=== PATIENT | female | born 1975 | race Caucasian/White ===

== ENCOUNTER → 2021-04-23 11:22 | Outpatient (BNVA) | payer OTHER, SELFPAY | PROVIDERS: PCP Physician Assistant; Visit Provider Advanced Practice Midwife ==

== ENCOUNTER 2021-05-20 08:02 | Outpatient (REF) | payer OTHER, SELFPAY ==
[2021-05-26 18:37] LABS: HPV mRNA E6/E7 rflx Not Detected (Not Detected)
== END 2021-05-20 08:03 | disposition home or self-care (01) ==
LOC: HO.LAB 08:02
PROVIDERS: PCP Physician Assistant; Visit Provider Advanced Practice Midwife
DX: Z01.419 Encounter for gynecological examination (general) (routine) without abnormal findings (principal); Z11.51 Encounter for screening for human papillomavirus (HPV); A63.0 Anogenital (venereal) warts
CPT/HCPCS: 87624; 88142

== ENCOUNTER 2021-12-15 07:39 | Outpatient (REF) | payer OTHER, SELFPAY ==
[2021-12-15 08:33] LABS: Hematocrit 39.1 % (37.0-47.0); Hemoglobin 12.6 g/dl (12.0-16.0); Mean Corpuscular HGB Conc 32.2 g/dl (31.0-35.0); Mean Corpuscular Hemoglobin 28.8 pg (27.0-33.0); Mean Corpuscular Volume 89.5 fL (80.0-98.0); Mean Platelet Volume 8.5 fL (9.4-12.3); Platelet Count 362 X10*3/uL (160-400); Red Blood Count 4.37 X10*6/uL (4.20-5.50); Red Cell Distribution Width 12.1 % (11.0-16.0); White Blood Count 6.7 X10*3/uL (4.8-10.8)
[2021-12-15 08:44] LABS: Estimated Average Glucose 97 mg/dL
[2021-12-15 09:00] LABS: Alanine Aminotransferase 18 U/L (0-31); Albumin Level 4.3 g/dL (3.5-5.0); Alkaline Phosphatase 74 U/L (39-117); Anion Gap 12 (12-20); Aspartate Amino Transferase 19 U/L (5-31); Bilirubin Total 0.3 mg/dL (0.0-1.0); Blood Urea Nitrogen 15 mg/dL (9-16); Calcium 9.2 mg/dL (8.4-10.2); Carbon Dioxide 26 mmol/L (22-29); Chloride 106 mmol/L (96-108); Cholesterol 184 mg/dL; Estimated Glomerular Filt Rate > 60; Glucose Fasting 100 mg/dL (60-99); HDL Cholesterol 53 mg/dL; Iron 49 mcg/dL (30-160); LDL Cholesterol Calculated 107 mg/dl; Percent Iron Saturation 15 % (15-50); Potassium 4.3 mmol/L (3.3-5.1); Sodium 140 mmol/L (135-145); Total Iron Binding Capacity 318 mcg/dL (228-428); Total Protein 6.6 g/dL (6.5-8.0); Triglycerides 121 mg/dL; Unsaturated Iron Binding 269 ug/dL
[2021-12-15 09:11] LABS: TSH reflex Free T4 2.15 uIU/mL (0.32-4.0)
== END 2021-12-15 07:40 | disposition home or self-care (01) ==
LOC: HO.LAB 07:39
PROVIDERS: PCP Physician Assistant; Visit Provider Physician Assistant
DX: K08.9 Disorder of teeth and supporting structures, unspecified (principal); D50.9 Iron deficiency anemia, unspecified; Z13.1 Encounter for screening for diabetes mellitus; Z13.220 Encounter for screening for lipoid disorders; Z13.29 Encounter for screening for other suspected endocrine disorder
CPT/HCPCS: 36415; 80053; 80061; 83036; 83540; 84443; 85027

== ENCOUNTER 2021-12-16 10:36 | Outpatient (REF) | payer OTHER, SELFPAY | END 2021-12-16 10:37 | disposition home or self-care (01) | LOC: HO.LAB 10:36 | PROVIDERS: PCP Physician Assistant; Visit Provider Obstetrics & Gynecology | DX: K62.9 Disease of anus and rectum, unspecified (principal) | CPT/HCPCS: 11106; 11420; 56605; 88305; 88312 ==

== ENCOUNTER → 2021-12-30 11:51 | Outpatient (BNVA) | payer OTHER, SELFPAY | PROVIDERS: Visit Provider Obstetrics & Gynecology | DX: Z13.89 Encounter for screening for other disorder (principal) ==

== ENCOUNTER → 2022-01-07 15:52 | Outpatient (BNVA) | payer OTHER, SELFPAY | PROVIDERS: Visit Provider Obstetrics & Gynecology | DX: Z13.89 Encounter for screening for other disorder (principal) ==

== ENCOUNTER 2022-01-12 19:10 | Emergency (ER) | payer OTHER, SELFPAY ==
--- NOTE | 2022-01-12 19:23 | PC.NURSE ---
no response at this time to triage call
--- NOTE | 2022-01-12 19:50 | PC.NURSE ---
no response for triage call at this time
== END 2022-01-12 21:01 | disposition left against medical advice (07) ==
PROVIDERS: Emergency Provider Emergency Medicine; PCP Physician Assistant
DX: R09.89 Other specified symptoms and signs involving the circulatory and respiratory systems (principal)

== ENCOUNTER 2022-06-16 04:10 | Emergency (ER) | payer OTHER, SELFPAY ==
--- NOTE | 2022-06-16 04:13 | ECG_ITS ---
Test Reason : CHEST PAIN Blood Pressure : / mmHG Vent. Rate : 086 BPM Atrial Rate : 086 BPM P-R Int : 136 ms QRS Dur : 080 ms QT Int : 386 ms P-R-T Axes : 068 075 048 degrees QTc Int : 461 ms Normal sinus rhythm Normal ECG No previous ECGs available Referred By: Generic ED Physician Electronically Signed By:ANA KELLY
[2022-06-16 04:18] VITALS: BP 128/76; BP 140/70; PULSE 100; PULSE 87; RESP 22; TEMP 36.7; O2SAT 100; BMI 24.1
[2022-06-16 04:36] LABS: Hematocrit 38.9 % (37.0-47.0); Hemoglobin 12.9 g/dl (12.0-16.0); Mean Corpuscular HGB Conc 33.2 g/dl (31.0-35.0); Mean Corpuscular Hemoglobin 29.1 pg (27.0-33.0); Mean Corpuscular Volume 87.8 fL (80.0-98.0); Mean Platelet Volume 8.4 fL (9.4-12.3); Platelet Count 330 X10*3/uL (160-400); Red Blood Count 4.43 X10*6/uL (4.20-5.50); White Blood Count 7.7 X10*3/uL (4.8-10.8)
--- NOTE | 2022-06-16 04:40 | ED.CHESTPAIN ---
HPI - Chest Pain General Chief Complaint: Chest Pain Stated Complaint: chest pressure Time Seen by Provider: 06/16/22 04:40 Source: patient Mode of arrival: EMS Limitations: no limitations History of Present Illness HPI narrative: Patient with no known coronary artery disease, history of anxiety comes here for the chest pain started in less than an hour ago. Also patient reported tingling in both hands. No shortness of breath. Pain feels like sharp pain patient took 6 Dulcolax tablet before going to bed patient was very anxious when EMS arrived Related Data Previous Rx's Medication Instructions Recorded fluoxetine 40 mg capsule 40 mg PO QAM 30 days #30 caps 12/16/21 triamcinolone acetonide 0.1 % 1 appl topical BID 4 weeks #80 01/07/22 topical cream grams oseltamivir 75 mg capsule (Tamiflu) 75 mg PO BID 5 days #10 caps 01/12/22 benzonatate 200 mg capsule 200 mg PO TID 5 days #15 caps 01/14/22 sennosides 8.6 mg tablet (Senna 17.2 mg PO BEDTIME 30 days #60 tabs 01/14/22 Laxative) Allergies Allergy/AdvReac Type Severity Reaction Status Date / Time No Known Allergies Allergy Unknown Verified 01/11/22 16:03 [facility] Past Medical History Medical History Endometriosis Surgical History H/O exploratory laparotomy History of root canal procedure Family History Family History (Updated 01/11/22 @ 16:02 by LEYLA Hughes) Father Colon cancer Mother History of IBS Arthritis Other Mental health disorder Social History Social History Housing: House Alcohol intake: current Alcohol intake frequency: holidays/special occasions only Patient Tobacco Use Status: Never used Tobacco e-Cigarette/Vaping Use: Never Used Advance Directives: No Advance Directives Information Provided: No service: No Current occupational status: employed 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 Oriented X3. No acute distress. Eyes: PERRLA, No Nystagmus ENT: Pharynx normal. Oral Mucosa moist Neck: Normal inspection. Neck supple. CVS: Normal heart rate and rhythm. Pulses normal. Respiratory: No respiratory distress. Equal air entry bilateral, no wheezing/rales/rhonchi Abdomen: Soft and nontender. Bowel sounds are present, no mass palpable, no CVA tenderness Skin: Skin warm and dry. Normal skin color. Normal skin turgor. Extremities: No lower extremity edema. No calf tenderness Neuro: Oriented X 3. No motor deficit. No sensory deficit.No cerebellar signs , cranial nerves II-XII intact MDM - Chest Pain MDM Narrative Medical decision making narrative: Patient atypical chest pain likely anxiety EKG with normal troponin negative heart score of 1 discharge patient home Lab Data Attestation: I reviewed the patient's lab results. Result diagrams: 06/16/22 04:31 06/16/22 04:31 Labs: Lab Results 06/16/22 06/16/22 06/16/22 Range/Units 04:31 04:31 04:31 WBC 7.7 (4.8-10.8) X10*3/uL RBC 4.43 (4.20-5.50) X10*6/uL Hgb 12.9 (12.0-16.0) g/dl Hct 38.9 (37.0-47.0) % MCV 87.8 (80.0-98.0) fL MCH 29.1 (27.0-33.0) pg MCHC 33.2 (31.0-35.0) g/dl RDW 12.0 (11.0-16.0) % Plt Count 330 (160-400) X10*3/uL MPV 8.4 L (9.4-12.3) fL Absolute Nucleated RBC 0.000 (0.0-0.012) X10*3/uL Nucleated RBC % (auto) 0.0 (0.0-0.2) /100WBC Sodium 141 (135-145) mmol/L Potassium 3.2 L D (3.3-5.1) mmol/L Chloride 106 (96-108) mmol/L Carbon Dioxide 22 (22-29) mmol/L Anion Gap 16 (12-20) BUN 10 (9-16) mg/dL Creatinine 0.78 (0.5-1.4) mg/dL Estim Creat Clear Calc 81.1 Estimated GFR > 60 Random Glucose 93 (60-115) mg/dL Calcium 8.9 (8.4-10.2) mg/dL Total Bilirubin 0.4 (0.0-1.0) mg/dL AST 18 (5-31) U/L ALT 14 (0-31) U/L Alkaline Phosphatase 79 (39-117) U/L Troponin I High Sens < 3.5 (<3.5-17.0) ng/L Total Protein 6.4 L (6.5-8.0) g/dL Albumin 4.1 (3.5-5.0) g/dL ECG Data ECG #1: Attestation: I personally reviewed and interpreted this ECG as follows: Interpretation: Normal sinus rhythm heart rate 86 beats per minute normal axis no acute ischemic changes impression normal EKG Scores Heart Score History: -0- slightly suspicious ECG: -0- normal Age: -1- >45 - <65 Risk factory: -0- no risk factors known Troponin: -0- < or = normal limit Score: 1 Risk: 1.7% Discharge Plan Discharge Clinical Impression: Atypical chest pain Patient Disposition: Home, Self-Care Instructions: Chest Pain (ED), Noncardiac Chest Pain (ED) Additional Instructions: Your pain is unlikely from the heart. Do not take more than 2 Dulcolax in 24 hours follow-up with PCP Prescriptions: No Action oseltamivir [Tamiflu] 75 mg capsule 75 mg PO BID 5 Days Qty: 10 0RF sennosides [Senna Laxative] 8.6 mg tablet 17.2 mg PO BEDTIME 30 Days Qty: 60 2RF benzonatate 200 mg capsule 200 mg PO TID 5 Days Qty: 15 0RF fluoxetine 40 mg capsule 40 mg PO QAM 30 Days Qty: 30 1RF triamcinolone acetonide 0.1 % cream 1 appl topical BID 28 Days Qty: 80 0RF Rx Instructions: Apply to the affected area twice a day for a week then twice a week for maintenance and as needed
[2022-06-16 04:53] LABS: Alanine Aminotransferase 14 U/L (0-31); Albumin Level 4.1 g/dL (3.5-5.0); Alkaline Phosphatase 79 U/L (39-117); Anion Gap 16 (12-20); Aspartate Amino Transferase 18 U/L (5-31); Bilirubin Total 0.4 mg/dL (0.0-1.0); Blood Urea Nitrogen 10 mg/dL (9-16); Calcium 8.9 mg/dL (8.4-10.2); Carbon Dioxide 22 mmol/L (22-29); Chloride 106 mmol/L (96-108); Creatinine Clr Calc Pharmacy 81.1; Estimated Glomerular Filt Rate > 60; Glucose Random 93 mg/dL (60-115); Potassium 3.2 mmol/L (3.3-5.1); Sodium 141 mmol/L (135-145); Total Protein 6.4 g/dL (6.5-8.0)
[2022-06-16 04:57] LABS: Troponin-I High Sensitivity < 3.5 ng/L (<3.5-17.0)
== END 2022-06-16 06:07 | disposition home or self-care (01) ==
PROVIDERS: Emergency Provider Internal Medicine; PCP Physician Assistant
DX: R07.89 Other chest pain (principal); R20.2 Paresthesia of skin; F41.9 Anxiety disorder, unspecified; Z79.899 Other long term (current) drug therapy
CPT/HCPCS: 36415; 80053; 84484; 85027; 93005; 99283

== ENCOUNTER 2022-08-20 09:14 | Outpatient (REF) | payer OTHER, SELFPAY ==
--- NOTE | ~2022-08-20 | MM_ITS ---
EXAMINATION: MM SCREENING DIGITAL BREAST TOMOSYNTHESIS, BILATERAL CLINICAL INFORMATION: Screening. Asymptomatic. Age 47. No prior mammography. No known family history breast cancer. The lifetime risk of breast cancer based on the Tyrer-Cuzick Model is 10%. COMPARISON: None (current study represents initial baseline exam). TECHNIQUE: Digital breast tomosynthesis is performed in both the craniocaudal and mediolateral oblique views along with computer-aided detection (CAD). Synthesized 2D images are generated from the tomosynthesis. FINDINGS: The breasts are heterogeneously dense, which may obscure small masses (ACR BI-RADS breast composition Category c). There are diffuse bilateral punctate and small round calcification in both breasts. No focal pleomorphic types or ductal distribution. No architectural abnormality. The axilla and skin contours are unremarkable. Left CC view has nodular opacity posterior medial breast without MLO correlate, likely muscle artifact. Right breast has a circumscribed 2.3 oval mass anterior 8:30 position, likely a cyst. MM/MM tomosynthesis screening BI IMPRESSION: -Bilateral benign punctate and round calcifications -Right: Circumscribed smooth oval mass approximately 2.3 cm anterior 8:30, suspect cyst. -Left: Nodular asymmetric density posterior medial breast on CC view, likely sternalis muscle artifact. ASSESSMENT: BI-RADS 0: Incomplete - Need Additional Imaging Evaluation RECOMMENDATION: Left: Additional views of the left breast: ML, cleavage. Targeted ultrasound if warranted. Right: Targeted ultrasound. Radiology department staff will contact the patient for additional imaging. This patient's information was entered into a reminder system with a target due date for their next mammogram.
== END 2022-08-20 09:15 | disposition home or self-care (01) ==
LOC: HO.MAMMO 09:14
PROVIDERS: PCP Physician Assistant; Visit Provider Physician Assistant
DX: Z12.31 Encounter for screening mammogram for malignant neoplasm of breast (principal)
CPT/HCPCS: 77063; 77067

== ENCOUNTER 2022-08-31 13:22 | Outpatient (REF) | payer OTHER, SELFPAY ==
--- NOTE | ~2022-08-31 | MM_ITS ---
EXAMINATION: MM DIAGNOSTIC DIGITAL BREAST TOMOSYNTHESIS, LEFT US DIAGNOSTIC ULTRASOUND BREAST, BILATERAL CLINICAL INFORMATION: Recall from baseline screening for circumscribed smooth oval mass on right, likely a cyst; and nodular asymmetric density posterior medial left, likely sternalis muscle artifact. TC score 10%. COMPARISON: Mammography: 08/20/2022 (baseline) TECHNIQUE: Digital breast tomosynthesis is performed. 2D images are generated from the tomosynthesis. The following views are obtained: Left cleavage view, left ML. Ultrasound right breast is targeted to the 8:00 through 10:00 position. The medial left breast is also targeted with attention back to the chest wall. Grayscale imaging and color Doppler are performed without and with harmonics. Right breast is imaged with patient both supine and sitting upright. FINDINGS: The breasts are heterogeneously dense, which may obscure small masses (ACR BI-RADS breast composition Category c). Additional views left breast show no persistent asymmetric density. There is no architectural abnormality. Ultrasound right breast demonstrates an incidental circumscribed mildly complicated cyst measuring 1.7 x 1.5 cm 8:00 position corresponding to the mammography. There is incidental dependent mildly echogenic material within the lumen which changes position within the lumen with upright patient positioning. There is no wall thickening or associated solid component or septation or color flow. There is good through transmission of sound. Ultrasound left breast demonstrates no cystic or solid mass or architectural abnormality in the posterior medial breasts. The chest wall soft tissues appear normal. Results are discussed with the patient at time of visit. MM/MM tomosynthesis added views L IMPRESSION: Left: -No persistent asymmetric density. Unremarkable targeted ultrasound. Right: -Benign cyst 8:00 position corresponding to finding on recent mammography. ASSESSMENT: BI-RADS 2: Benign RECOMMENDATION: Routine annual mammography screening. This patient's information was entered into a reminder system with a target due date for their next mammogram.
== END 2022-08-31 13:23 | disposition home or self-care (01) ==
LOC: HO.MAMMO 13:22
PROVIDERS: PCP Physician Assistant; Visit Provider Physician Assistant
DX: N63.20 Unspecified lump in the left breast, unspecified quadrant (principal); N63.10 Unspecified lump in the right breast, unspecified quadrant
CPT/HCPCS: 76642; 77061; 77065

== ENCOUNTER 2022-12-08 12:41 | Outpatient (REF) | payer OTHER, SELFPAY ==
[2022-12-08 14:08] LABS: TSH reflex Free T4 2.16 uIU/mL (0.32-4.0); Vitamin D 25-OH Total 30.1 ng/mL (>30)
== END 2022-12-08 12:42 | disposition home or self-care (01) ==
LOC: HO.LAB 12:41
PROVIDERS: PCP Physician Assistant; Visit Provider Nurse Practitioner Family
DX: F32.A Depression, unspecified (principal); F41.9 Anxiety disorder, unspecified; F42.9 Obsessive-compulsive disorder, unspecified; F50.2 Bulimia nervosa; G47.00 Insomnia, unspecified
CPT/HCPCS: 36415; 82306; 84443

== ENCOUNTER 2023-04-27 10:53 | Outpatient (AMB) | payer OTHER, SELFPAY ==
--- NOTE | 2023-04-27 10:58 | A.OFFPC_ITS ---
Vital Signs 04/27/23 10:59 Height 5 ft 5 in Weight 161 lb BMI 26.8 BP 110/62 Blood Pressure Location Lt brachial Position Sitting Pulse 70 Pulse Source Pulse Oximeter Pulse Oximetry (%) 99 Oxygen Delivery Method Room Air Intake Visit Reasons: f/u MDD Allergies No Known Allergies Allergy (Unknown, Verified 04/27/23 11:05) Medication List - Last Reconciled 04/27/23 by Shankar Barrera PA-C hydroxyzine HCl 25 mg PO BID PRN mupirocin calcium 2% 1 appl topical BID 15 days sennosides (Senna Laxative) 17.2 mg (2 x 8.6 mg) PO BEDTIME 30 days sertraline 50 mg PO DAILY trazodone 25 mg (1/2 x 50 mg) PO BEDTIME PRN Tobacco use date assessed: 11/25/22 Dental Screening Dental Screen Date: 04/27/23 Did you have a dental visit in the last 12 months?: No Did you have a dental problem in the last 6 months where you did not have access to dental care?: No Was dental information given to patient?: Patient has dentist HPI f/u MDD HPI Details Patient is a 47-y ear-old female pallavi ng evaluated today via telephone.? P atient has a past medical history si gnificant for inso mnia, generalized anxiety disorder, depression and OCD . Generalized anx iety/OCD/major dep ressive disorder:? She is speaking w ith a mental healt h therapist ( Eloisa iqbal) at [facility] y counseling.? Now has a psychiatris t whom advised to increase trazodone at night for bett er sleep. She rep orts her mental he alth disorders hav e become worse ove r the last several months.? She repo rts a lot of famil y stressors. 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 .. Oth er concerns--> has been dealing with a nasal infection for many months t o which she has us ed oral antibiotic s and topical anti biotics which has been helpful thoug h still feels irri tation and inner p art of her nose. Also has developed hyperpigmentation is over her cheek s and wonders if t here is any treatm ent for this. [facility] Medical History Endometriosis Surgical History H/O exploratory laparotomy History of root canal procedure Family History Father Colon cancer Mother History of IBS Arthritis Other Mental health disorder Social History Housing: House Alcohol intake: current Alcohol intake frequency: holidays/special occasions only Patient Tobacco Use Status: Never used Tobacco e-Cigarette/Vaping Use: Never Used service: No Current occupational status: employed Current occupation: [employer] 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 Gender identity: Female Cognitive needs: No Hearing needs: No Vision needs: No Female Reproductive History Menstrual Age of Menarche: 15 Questionnaire PHQ-9 Over the last 2 weeks, how often have you been bothered by any of the following problems? 1. Little interest or pleasure in doing things: nearly every day 2. Feeling down, depressed, or hopeless: nearly every day 3. Trouble falling or staying asleep, or sleeping too much: nearly every day (trouble sleeping ) 4. Feeling tired or having little energy: nearly every day 5. Poor appetite or overeating: nearly every day (overeating ) 6. Feeling bad about yourself - or that you are a failure or have let yourself or your family down: more than half the days 7. Trouble concentrating on things, such as reading the newspaper or watching television: several days 8. Moving or speaking so slowly that other people could have noticed. Or the opposite - being so fidgety or restless that you have been moving around a lot more than usual: nearly every day 9. Thoughts that you would be better off or of hurting yourself in some way: nearly every day (pt states almost everyday ) Total score: 24 Depression Screening Interpretation: Positive Depression Screening Follow-up: Existing condition, New Medication prescribed and Community Mental Health Worker F/U 59984 - PHQ-9 Billing: Yes Source: Developed by Drs. Efrain Richard, Tita B.WMichi Houston and colleagues, with an educational bo from [employer]. Thrive Questionnaire Date Thrive assessed: 10/14/22 AUDIT C Alcohol Use Questionnaire (AUDIT-C) 1. How often do you have a drink containing alcohol?: Monthly or less (social ) 2. How many drinks containing alcohol do you have on a typical day when you are drinking?: 1 or 2 3. How often do you have six or more drinks on one occasion?: Never Total Score: 1 Score Reviewed/Action Taken: No FABIAN-7 AMB Questionnaire FABIAN-7 Date FABIAN - 7 assessed: 10/14/22 Source: Developed by Drs. Efrain Richard, Michi Penaloza and colleagues, with an educational bo from [employer]. Review of Systems Const Denies headache(s) Eyes Denies loss of vision ENT Denies vertigo, Denies dizziness, Denies headache(s) and Denies sore throat Card Denies chest pain, Denies leg edema and Denies lightheadedness Resp Denies cough, Denies hemoptysis and Denies wheezing GI Denies abdominal pain, Denies melena, Denies constipation, Denies diarrhea and Denies vomiting Denies urinary frequency, Denies dysuria and Denies urinary urgency Musc Denies arthralgias, Denies joint swelling, Denies numbness and Denies tingling Neuro Denies Abnormal speech present, Denies behavioral changes, Denies vertigo, Denies dizziness, Denies headache(s), Denies loss of vision, Denies memory loss, Denies numbness and Denies tingling Psych Denies anxiety, Denies behavioral changes, Denies depression, Denies memory loss and Denies panic attacks Jake/Lymph Denies easy bleeding and Denies easy bruising Aller/Immun Denies wheezing Physical exam (Primary Care) Vital Signs: Last Vital Signs Pulse 70 04/27/23 10:59 BP 110/62 04/27/23 10:59 Pulse Ox 99 04/27/23 10:59 Oxygen Delivery Method Room Air 04/27/23 10:59 BMI result Body Mass Index 26.8 Tobacco/Smoking Status: Tobacco use Status Tobacco use date assessed 11/25/22 04/27/23 11:03 Patient Tobacco Use Status Never used Tobacco 04/27/23 11:03 e-Cigarette/Vaping Use Never Used 04/27/23 11:03 PHQ-9: PHQ-9 Score PHQ-9: Total score 24 04/27/23 11:08 Depression Screening Interpretation: Positive Depression Screening Follow-up: Existing condition, New Medication prescribed and Community Mental Health Worker F/U Thrive Assessment: Date of Thrive Assessment Date Thrive assessed 10/14/22 04/27/23 11:03 Const General: healthy appearing, no acute distress, alert and awake Nutritional Appearance: well nourished Orientation/consciousness: oriented to person, oriented to place and oriented to time [facility] Head images: 1. HYPERPIGMENTED LESION OVER THE RIGHT CHEEK. Ears: TM's normal bilaterally General nose exam: Normal nasal mucous membranes and turbinates present Eyes Conjunctivae: conjunctivae normal Sclerae: sclerae normal Pupils: Equal, round and reactive pupils present Neck Neck: Yes no lymphadenopathy and Yes no JVD Thyroid: Thyroid normal Carotids: no bruits Resp Effort & Inspection: normal respiratory effort and not tachypneic Auscultation: no crackles, no rales, no rhonchi and no wheezes Cardio Rate: regular rate Rhythm: regular rhythm Heart sounds: no murmurs and normal S1 and S2 GI Palpation (GI): Soft to palpation, nontender, no hepatomegaly and no splenomegaly Auscultation: normal bowel sounds Skin General skin exam: no rashes or lesions noted and dry skin Neuro General: oriented to person, oriented to place and oriented to time Cranial nerves: Yes Equal, round and reactive pupils present Speech: No Abnormal speech present Gait exam (Neuro): Normal gait present Motor exam (neuro): no tremor noted Extrem Right upper extremity: full ROM Left upper extremity: full ROM Right lower extremity: full ROM; no edema Left lower extremity: full ROM; no edema Psych Mental Status: mental status grossly normal Speech and movement: Normal speech and movement present Affect: normal affect Attitude: cooperative Thought process: Normal thought process present Assessment and Plan Assessment & Plan (1) MDD (major depressive disorder), recurrent episode, moderate: Code(s): F33.1 - Major depressive disorder, recurrent, moderate Plan: PHQ-9 score positive for moderate to severe depression which has been existing condition for her.. Patient seems to be doing much better with her depression and anxiety. She is not speaking with a mental health therapist and has establish care with a psychiatrist through [place]. Still has stress related to work in her personal life. Continues on sertraline 50 mg. Now back to work full-time and doing fairly well. (2) Insomnia: Code(s): G47.00 - Insomnia, unspecified Qualifiers: Insomnia type: primary Qualified Code(s): F51.01 - Primary insomnia Plan: Has been vies to increase her trazodone dose at night. (3) Melasma: Code(s): L81.1 - Chloasma Plan: Patient showing signs of melasma. We did discuss the pathophysiology this and patient does understand. She would like to try topical treatment Medications: New mupirocin 2% 1 appl topical BID 22 grams 0RF L01.00 - Impetigo, unspecified hydroquinone 4% 1 appl topical BID 30 days 28.35 grams 6RF L81.1 - Chloasma Discontinued mupirocin calcium 2% Discontinued Reason: Doctor's Order 1 appl topical BID 15 days 15 grams 0RF L01.00 - Impetigo, unspecified Coding Level of Care Code Est Pt Level 4 (22291) Diagnoses MDD (major depressive disorder), recurrent episode, moderate F33.1 Insomnia F51.01 Insomnia type: primary Melasma L81.1
[2023-04-27 10:59] VITALS: BP 110/62; PULSE 70; O2SAT 99; BMI 26.8
== END 2023-04-27 11:22 | disposition home or self-care (01) ==
PROVIDERS: PCP Physician Assistant; Visit Provider Physician Assistant
DX: F33.1 Major depressive disorder, recurrent, moderate (principal); F51.01 Primary insomnia; L81.1 Chloasma
CPT/HCPCS: 99214

== ENCOUNTER 2023-05-31 15:19 | Outpatient (AMB) | payer OTHER, SELFPAY ==
[2023-05-31 15:26] VITALS: BP 102/66; PULSE 71; BMI 26.0
--- NOTE | 2023-05-31 15:26 | MHC.OFFVIS ---
Intake Vital Signs 05/31/23 15:26 Height 5 ft 5 in Weight 156 lb 8.451 oz BMI 26.0 BP 102/66 Blood Pressure Location Lt brachial Position Sitting Pulse 71 Intake Visit Reasons: Family hx of colon CA (dad) Intake Note: Shayy presents in the office as new patient for family hx of colon cancer. CC: Father passed from colon cancer. she states that for a long time she relied on OTC meds to sleep. She has been checked for blood work and she gets nervous about colon, liver and labs. Sometimes she has constipation/ Material Mover Required: No Allergies No Known Allergies Allergy (Unknown, Verified 05/31/23 15:31) HPI Family hx of colon CA (dad) HPI Details 48 year old? female here today for pre colonoscopy screening.? Patient was sent to us by her PCP.? This is her first colonoscopy screening.? Patient denies any gastrointestinal symptoms in the past or at present.? Patient reports that her father was diagnosed with colorectal cancer in 2016. Unsuccessful chemo. He in June of 2021.? Denies history of difficulty with sedation or anesthesia in the past.? Negative for history of sleep apnea.? Denies any history of cardiac, renal, pulmonary, or hepatic disease.?? No history of infectious? diseases like hepatitis A, B, C, HIV or tuberculosis.? Patient is not on any anticoagulation therapy. 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[employer] 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 Gender identity: Female Cognitive needs: No Hearing needs: No Vision needs: No Female Reproductive History Menstrual Age of Menarche: 15 Review of Systems Const Denies weight gain and Denies weight loss ENT Reports no additional complaints, Denies dysphagia and Denies odynophagia Card Reports no additional complaints Resp Reports no additional complaints GI Denies abdominal pain, Denies belching, Denies melena, Denies bloating, Reports constipation, Denies dysphagia, Denies excessive flatus, Denies dyspepsia, Denies heartburn, Denies diarrhea, Denies loose stools, Denies nausea, Denies odynophagia and Denies vomiting Reports no additional complaints Musc Reports no additional complaints Neuro Reports no additional complaints Psych Reports no additional complaints Endo Reports no additional complaints Physical Exam Vital Signs: Last Vital Signs Pulse 71 05/31/23 15:26 BP 102/66 05/31/23 15:26 BMI result Body Mass Index 26.0 Const General: healthy appearing, no acute distress and well developed Nutritional Appearance: well nourished Orientation/consciousness: patient oriented x3 HEENT Head: Yes normal to inspection, Yes normocephalic and Yes atraumatic Face and sinus: Yes normal facial exam Mouth: Normal oral and palatal mucosa present Throat: Yes posterior oropharynx normal, Yes tonsils normal and Yes uvula midline Eyes General: appearance normal, both eyes and all related structures Neck Neck: Yes normal visual inspection, Yes full ROM and Yes trachea midline Thyroid: Thyroid normal Resp Effort & Inspection: normal respiratory effort, able to speak in complete sentences, no tracheal deviation and symmetric chest movement Auscultation: clear to auscultation bilaterally Cardio Rate: regular rate Heart sounds: S1 normal heart sound present and S2 normal heart sound present GI Inspection: Yes normal to inspection and No distended Palpation (GI): Soft to palpation, not firm, nontender and No hepatosplenomegaly present Auscultation: normal bowel sounds General: Yes no CVA tenderness Back/Spine/Pelvis Back: no CVA tenderness Skin General skin exam: elasticity normal, turgor normal and dry skin Neuro General: patient oriented x3 Psych Appearance: grossly normal Mental Status: mental status grossly normal Speech and movement: Normal speech and movement present Assessment & Plan Assessment & Plan (1) Constipation: Code(s): K59.00 - Constipation, unspecified Qualifiers: Constipation type: other constipation type Qualified Code(s): K59.09 - Other constipation Plan: Start MiraLax. Increase fluid intake and activity to promote better bowel motility. (2) Colon cancer screening: Code(s): Z12.11 - Encounter for screening for malignant neoplasm of colon Plan: Patient denies any GI, cardiac or respiratory symptoms.? Denies any issues with anesthesia in the past.? Denies any history of sleep apnea.? No history infectious diseases in the past or present.? Family history of colorectal cancer. Not on any anticoagulation therapy.? Patient denies melena, hematochezia, unintentional weight loss or ribbon like stools.? Discussed at length the pre-procedure,? prep, diet & medications as well as what to expect prior, during and after the procedure.?? Stressed the importance of good bowel prep. ?Recommended the use of Vaseline or Calmoseptine OTC & baby wipes with bowel movements to promote comfort.? ?Patient verbalizes understanding and agrees to plan of care.? She was given the opportunity to ask questions and all questions answered.? We will see her after the procedure.? Medications: New bisacodyl (Dulcolax (bisacodyl)) take 2 tabs at noon the day before your colonoscopy 10 mg (2 x 5 mg) PO ONCE 1 day 2 tabs 0RF Z12.11 - Encounter for screening for malignant neoplasm of colon polyethylene glycol 3350 (Miralax) As directed by gastroenterology department at [facility] 238 grams PO ONCE 238 grams 0RF Z12.11 - Encounter for screening for malignant neoplasm of colon polyethylene glycol 3350 (Miralax) 17 grams PO DAILY 510 grams 2RF Coding Level of Care Code New Pt Level 3 (88247) Diagnoses Other constipation K59.09 Constipation type: other constipation type Colon cancer screening Z12.11 Time Spent (min) 40 Comment 30 minutes spent with patient and additional 10 minutes spent reviewing her records
== END 2023-05-31 16:15 | disposition home or self-care (01) ==
PROVIDERS: PCP Physician Assistant; Visit Provider Nurse Practitioner Family
DX: K59.09 Other constipation (principal); Z12.11 Encounter for screening for malignant neoplasm of colon
CPT/HCPCS: 99203

== ENCOUNTER → 2023-05-31 15:19 | Outpatient (BNVA) | payer OTHER, SELFPAY | PROVIDERS: PCP Physician Assistant; Visit Provider Nurse Practitioner Family ==

== ENCOUNTER 2023-09-02 10:34 | Day surgery (SDC) | payer OTHER, SELFPAY ==
--- NOTE | 2023-09-01 09:24 | HO.ANESPROP2 ---
HPI - Anesthesia Eval Consult details Narrative: 48yo F for Colonoscopy PMFSH Active Problems Active Problems: All Active Problems (Updated 04/27/23 @ 11:13 by Shankar Barrera PA-C) Melasma (Acute) Impetigo (Acute) MDD (major depressive disorder), recurrent episode, moderate (Acute) Insomnia (Acute) Depression (Acute) Acute viral sinusitis (Acute) Upper respiratory symptom (Acute) Lichen simplex chronicus (Acute) Perianal lesion (Acute) Annual physical exam (Acute) Constipation (Acute) H/O bulimia nervosa (Acute) Family history of colon cancer in father (Acute) Elevated blood pressure reading (Acute) OCD (obsessive compulsive disorder) (Acute) FABIAN (generalized anxiety disorder) (Acute) Colon cancer screening (Acute) Poor dentition (Acute) Screening for hypothyroidism (Acute) Screening for hypercholesterolemia (Acute) Screening for diabetes mellitus (DM) (Acute) Surveillance for Depo-Provera contraception (Acute) Past Medical History Medical History Endometriosis Family History Family History Father Colon cancer Mother History of IBS Arthritis Other Mental health disorder Surgical History Surgical History (Updated 09/02/23 @ 11:30 by Yaritza Segundo RN) Hx of breast implants, bilateral History of root canal procedure H/O exploratory laparotomy Social History Social History Housing: House Alcohol intake: current Alcohol intake frequency: holidays/special occasions only Patient Tobacco Use Status: Never used Tobacco e-Cigarette/Vaping Use: Never Used Use of substances other than those prescribed or required for medical reasons: No Are you DNR?: No Advance Directives: No Advance Directives Information Provided: Yes service: No Current occupational status: employed Current occupation: [email or web address] 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 Gender identity: Female Cognitive needs: No Hearing needs: No Vision needs: No Meds Allergies Allergy/AdvReac Type Severity Reaction Status Date / Time No Known Allergies Allergy Unknown Verified 09/02/23 11:26 Home Medications Medication Instructions Recorded Confirmed Last Taken Type trazodone 100 mg tablet 100 mg PO BEDTIME 05/31/23 Unknown History Assessment and Plan Assessment Anesthesia Assessment: Chart Reviewed
--- OUTSIDE RECORDS SUMMARY | 2023-09-02 10:36 | XMS_ITS | Continuity of Care Document ---
Author Name Unknown Organization [facility] Scooter keeley Address [address] [place] [address] [address] [place] [address]- Care Team Providers Care Radio Division Captain Name Role Phone Not on Staff, PCP Primary Care Physician Unavail able [place] [facility] [place] - 01/10/20 [facility] [address] [place] [address]- [facility] Attending Physician: AdmHardeep morgan Admitting Physician: AdmtrHardeep Referring Physician: Admtr, Ar8 Allergies, Adverse Reactions, Alerts Substance Reaction Severity Status NKA Active Medications ibuprofen 600 mg oral tablet 600 mg, 1, tablet, By Mouth, Every 6 hours, PRN, with food or milk, # 20 tablet, Refills 0, Tot. Refills 0, Acute 10/24/20 16:07:00 EST, as needed for fever, 10/23/19 16:07:00 EST, Route to Pharmacy Electronically, [id number], 165, cm... Start Date: 10/23/19 Stop Date: 10/24/20 Status: Ordered omeprazole 20 mg oral enteric coated capsule 1 capsule = 20 mg, By Mouth, Daily, # 30 capsule, 0 Refills, Maintenance, 11/20/16 11:43:43, EC Capsule Start Date: 11/20/16 Status: Ordered Zofran 4 mg oral tablet 1 tablet = 4 mg, By Mouth, Every 8 hours, PRN Nausea & Vomiting, # 10 tablet, 0 Refills, Maintenance, 11/20/16 11:44:00, Tablet Start Date: 11/20/16 Status: Ordered
[2023-09-02 11:26] VITALS: BMI 27.1
--- NOTE | 2023-09-02 11:43 | P.HPSUR_ITS ---
Pre-Procedural Eval Section A Date of Service: 09/02/23 The patient is an INPATIENT: No The History & Physical has been completed within 30 days and I have reviewed it.: No Section B Chief Complaint: Colon cancer screening, family history of colon ca Relevant Family History (Specify if Yes): Yes Relevant Social History: None Present Medications: see Short Stay Collaborative assessment Medical History: Significant History (Endometriosis) History of Previous Operations: Relevant previous surgery/procedure and date(s) (History of root canal procedure H/O exploratory laparotomy) Allergies: Allergies Allergy/AdvReac Type Severity Reaction Status Date / Time No Known Allergies Allergy Unknown Verified 09/02/23 11:26 Review of Systems Sugical H&P ROS: Negative: Constitution, Cardiovascular, Respiratory and G astrointestinal Plan Diagnosis/Plan: Unchanged I have reviewed the history and physical and performed a pertinent physical examination on my patient. No changes have occurred unless specified. Time Spent With Patient Time: Total time managing care of this patient today ____ minutes.
[2023-09-02 11:49] VITALS: BP 117/67; PULSE 71; RESP 15; TEMP 37; O2SAT 97
--- NOTE | 2023-09-02 11:54 | P.OP_ITS ---
Operative Note Operative Note Date of Service: 09/02/23 Narrative: COLONOSCOPY TILL CECUM WITH BIOPSIES AND SNARE POLYPECTOMY Pre-op diagnosis: Colon cancer screening, family history of colon cancer (Dad in his mid 70's) Post-op diagnosis:? Colon polyps, diverticulosis, hemorrhoids, Melanosis coli Endoscopist:? Alyssa Bates MD Anesthesia:?MAC Consent: Indications for the procedure and potential complications of bleeding, perforation, reaction to medications and missed diagnosis were discussed with the patient and informed consent was obtained. Instrument: Olympus PCF H 190 L variable stiffness pediatric colonoscope Monitoring: Vital signs and clinical assessment, intermittent blood pressure monitoring, continuous EKG monitoring, Pulse oximetry and Carbon Dioxide monitoring were done throughout the procedure. Please see anesthesia flowsheet. Colon withdrawl time was 19 minutes. Procedure: The patient was placed in the left lateral decubitis position and pre-procedure medications were administered. After a digital rectal examination of the ano-rectum, the video colonoscope was inserted into the rectum and advanced through the colon to the cecum. The colonoscope was slowly withdrawn in a retrograde panoramic fashion and the colon mucosa was carefully examined including a retroflexed view of the rectum. Findings and interventions are described below. Procedure Difficulty: Without difficulty Findings: Terminal Ileum: Not evaluated Cecum: Mild melanosis coli throughout the colon - random biopsies were obtained from the right colon Ascending Colon: A 12-15 mm sessile polyp in the mid ascending colon - removed with a hot snare Transverse Colon: Mild melanosis coli throughout the colon Descending Colon: Mild melanosis coli throughout the colon Sigmoid Colon: Moderate diverticulosis Rectum: Normal Ano-rectum: Moderate internal hemorrhoids Colon preparation: Good after copious irrigation and fair in the cecum Impression and Post Procedure Diagnosis: Colonoscopy Findings: One medium sized polyp removed Mild melanosis coli throughout the colon - random biopsies were obtained from the right colon Moderate diverticulosis seen in the sigmoid colon Moderate hemorrhoids on retroflexed exam. Plan: Await pathology results Patient has an appointment on 09/20/23 in the GI Clinic with Cecile Valero FNP- BC. Repeat Colonoscopy interval based on path results - in 3 years if polyps are adenomatous and 5 years if polyps are hyperplastic due to fair prep in the cecum and family history of colon cancer. Above findings were reviewed with the patient and colon polyps and diverticulosis handouts were given in the discharge area
[2023-09-02] MEDS: Lactated Ringers 1,000 ML 100 ML IVCONT (11:57)
[2023-09-02 12:02] LABS: UPreg QC Valid YES; Urine Pregnancy NEGATIVE (NEGATIVE)
[2023-09-02 12:33] VITALS: BP 106/66; PULSE 73; RESP 16; TEMP 36.5; O2SAT 100
[2023-09-02 12:48] VITALS: BP 111/67; PULSE 68; RESP 16; TEMP 36.5; O2SAT 100
== END 2023-09-02 13:20 | disposition home or self-care (01) ==
PROVIDERS: Nurse Practitioner; PCP Physician Assistant; Visit Provider Internal Medicine Gastroenterology
PROC: 0DJD8ZZ Inspection of Lower Intestinal Tract, Via Natural or Artificial Opening Endoscopic (ICD-10-PCS; CPT 45378; principal; 2023-09-02 12:10)
DX: Z12.11 Encounter for screening for malignant neoplasm of colon (principal); D12.2 Benign neoplasm of ascending colon; K63.89 Other specified diseases of intestine; K57.30 Diverticulosis of large intestine without perforation or abscess without bleeding; K64.8 Other hemorrhoids; Z80.0 Family history of malignant neoplasm of digestive organs; G47.00 Insomnia, unspecified; L28.0 Lichen simplex chronicus; K59.00 Constipation, unspecified; Z86.59 Personal history of other mental and behavioral disorders; Z79.899 Other long term (current) drug therapy
CPT/HCPCS: 45385; 45380; 81025; 88305; J2704

== ENCOUNTER → 2023-09-02 10:34 | Outpatient (BNV) | payer OTHER, SELFPAY | PROVIDERS: PCP Physician Assistant; Visit Provider Internal Medicine Gastroenterology | DX: Z12.11 Encounter for screening for malignant neoplasm of colon (principal); Z80.0 Family history of malignant neoplasm of digestive organs; K57.30 Diverticulosis of large intestine without perforation or abscess without bleeding; K64.0 First degree hemorrhoids; K63.89 Other specified diseases of intestine; D12.2 Benign neoplasm of ascending colon | CPT/HCPCS: 45380; 45385 ==

== ENCOUNTER 2023-09-20 14:48 | Outpatient (AMB) | payer OTHER, SELFPAY ==
--- NOTE | 2023-09-20 14:56 | A.OFFVIS_ITS ---
Intake Vital Signs 09/20/23 14:59 Height 5 ft 4.5 in Weight 164 lb BMI 27.7 BP 120/68 Blood Pressure Location Lt brachial Position Sitting Pulse 78 Intake Visit Reasons: S/P Seth; Dr. Bates Intake Note: Shayy presents in the office as a follow up colonoscopy. CC: She states that her results came back with some stuff and she is a little concerned. She states that there was diverticulitis and holes in her colon or pockets. Management Technician Required: No Allergies No Known Allergies Allergy (Unknown, Verified 09/20/23 15:01) HPI S/P Seth; Dr. Bates HPI Details LAST VISIT: Constipation Start MiraLax. Increase fluid intake and activity to promote better bowel motility. Colon cancer screening Patient denies any GI, cardiac or respiratory symptoms.? Denies any issues with anesthesia in the past.? Denies any history of sleep apnea.? No history infectious diseases in the past or present.? Family history of colorectal cancer. Not on any anticoagulation therapy.? Patient denies melena, hematochezia, unintentional weight loss or ribbon like stools.? Discussed at length the pre-procedure,? prep, diet & medications as well as what to expect prior, during and after the procedure.?? Stressed the importance of good bowel prep. ?Recommended the use of Vaseline or Calmoseptine OTC & baby wipes with bowel movements to promote comfort.? ?Patient verbalizes understanding and agrees to plan of care.? She was given the opportunity to ask questions and all questions answered.? We will see her after the procedure.? Plan Medications New bisacodyl (Dulcolax (bisacodyl)) take 2 tabs at noon the day before your colonoscopy 10 mg (2 x 5 mg) PO ONCE 1 day 2 tabs 0R F Z12.11 polyethylene glycol 3350 (Miralax) As directed by gastroenterology department at [facility] 238 grams PO ONCE 238 grams 0RF Z12.11 polyethylene glycol 3350 (Miralax) 17 grams PO DAILY 510 grams 2RF COLONOSCOPY: Findings: Terminal Ileum: Not evaluated Cecum: Mild melanosis coli throughout the colon - random biopsies were obtained from the right colon Ascending Colon: A 12-15 mm sessile polyp in the mid ascending colon - removed with a hot snare Transverse Colon: Mild melanosis coli throughout the colon Descending Colon: Mild melanosis coli throughout the colon Sigmoid Colon: Moderate diverticulosis Rectum: Normal Ano-rectum: Moderate internal hemorrhoids Colon preparation: Good after copious irrigation and fair in the cecum Impression and Post Procedure Diagnosis: Colonoscopy Findings: One medium sized polyp removed Mild melanosis coli throughout the colon - random biopsies were obtained from the right colon Moderate diverticulosis seen in the sigmoid colon Moderate hemorrhoids on retroflexed exam. Plan: Repeat Colonoscopy interval based on path results - in 3 years if polyps are adenomatous and 5 years if polyps are hyperplastic due to fair prep in the cecum and family history of colon cancer. PATHOLOGY RESULTS: Diagnosis A. Colon, ascending, polyp: Tubular adenoma; negative for high-grade dysplasia and carcinoma. B. Colon, ascending, biopsy: Colonic mucosa with pigmented lamina propria macrophages consistent with melanosis coli, otherwise no specific change TODAY'S VISIT: Patient is here today for follow-up and to discuss colonoscopy results. Patient is worry about what was seen on colonoscopy. Diverticulosis and melanosis coli. Patient did take Senokot in the past most likely melanosis coli related to that. Patient reports that occasionally she is constipated. Patient reports that she eats food that is high in fiber. Patient denies any melena, hematochezia, unintentional weight loss or ribbon like stools. Patient denies any dyspepsia, dysphagia or odynophagia. Denies any issues with the prep, anesthesia or procedure itself. Patient reports that she has been feeling well otherwise. [facility] Medical History (Updated 10/01/23 @ 18:55 by REHANA Paniagua) Tubular adenoma of colon Melanosis coli Endometriosis Surgical History Hx of colonoscopy Hx of breast implants, bilateral History of root canal procedure H/O exploratory laparotomy Family History Father Colon cancer Mother History of IBS Arthritis Other Mental health disorder Social History Housing: House Alcohol intake: current Alcohol intake frequency: holidays/special occasions only Patient Tobacco Use Status: Never used Tobacco e-Cigarette/Vaping Use: Never Used service: No Current occupational status: employed 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[employer] 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 Gender identity: Female Cognitive needs: No Hearing needs: No Vision needs: No Female Reproductive History Menstrual Age of Menarche: 15 Review of Systems Const Denies weight gain and Denies weight loss ENT Reports no additional complaints, Denies dysphagia and Denies odynophagia Card Reports no additional complaints Resp Reports no additional complaints GI Denies abdominal pain, Denies belching, Denies melena, Denies bloating, Denies change in bowel habits, Reports constipation (Occasional), Denies dysphagia, Denies excessive flatus, Denies dyspepsia, Denies heartburn, Denies diarrhea, Denies loose stools, Denies nausea, Denies odynophagia and Denies vomiting Reports no additional complaints Musc Reports no additional complaints Neuro Reports no additional complaints Psych Reports no additional complaints Endo Reports no additional complaints Physical Exam Vital Signs: Last Vital Signs Pulse 78 09/20/23 14:59 BP 120/68 09/20/23 14:59 BMI result Body Mass Index 27.7 Const General: healthy appearing, no acute distress and well developed Nutritional Appearance: well nourished Orientation/consciousness: patient oriented x3 Resp Effort & Inspection: normal respiratory effort, able to speak in complete sentences, no tracheal deviation and symmetric chest movement Auscultation: clear to auscultation bilaterally Cardio Rate: regular rate GI Inspection: Yes normal to inspection and No distended Palpation (GI): Soft to palpation, not firm, nontender and No hepatosplenomegaly present Auscultation: normal bowel sounds General: Yes no CVA tenderness Back/Spine/Pelvis Back: no CVA tenderness Skin General skin exam: elasticity normal, turgor normal and dry skin Neuro General: patient oriented x3 Psych Appearance: grossly normal Mental Status: mental status grossly normal Assessment & Plan Assessment & Plan (1) Constipation: Code(s): K59.00 - Constipation, unspecified Qualifiers: Constipation type: other constipation type Qualified Code(s): K59.09 - Other constipation (2) Melanosis coli: Code(s): K63.89 - Other specified diseases of intestine (3) Tubular adenoma of colon: Code(s): D12.6 - Benign neoplasm of colon, unspecified (4) Status post colonoscopy: Code(s): Z98.890 - Other specified postprocedural states (5) Diverticulosis: Code(s): K57.90 - Diverticulosis of intestine, part unspecified, without perforation or abscess without bleeding Plan High-fiber diet discussed with patient. Diagnosed with moderate diverticulosis in the sigmoid colon. Patient had also melanosis coli in transverse and ascending colon. Most likely from use of senna in the past. Patient can take MiraLax over the counter. Script for magnesium sent. Patient was also encouraged to start taking probiotic. Increase fluid intake and activity to promote better bowel motility. Colonoscopy recommendation in 3 years due to tubular adenoma and suboptimal prep. Patient will return to the office in 1 year, sooner on as needed basis. Patient will call our office if she will have any GI concerning symptoms. She is agreeable to this plan and verbalizes understanding of instructions. She was given the opportunity to ask questions and all questions answered. Thank you for allowing me to participate in her care Medications: New magnesium oxide 400 mg PO DAILY 90 caps 2RF K59.04 - Chronic idiopathic constipation Coding Level of Care Code Est Pt Level 3 (37342) Diagnoses Other constipation K59.09 Constipation type: other constipation type Melanosis coli K63.89 Tubular adenoma of colon D12.6 Status post colonoscopy Z98.890 Diverticulosis K57.90 Time Spent (min) 30 Comment 20 minutes spent with patient and additional 10 minutes spent reviewing her records
[2023-09-20 14:59] VITALS: BP 120/68; PULSE 78; BMI 27.7
== END 2023-09-20 15:56 | disposition home or self-care (01) ==
PROVIDERS: PCP Physician Assistant; Visit Provider Nurse Practitioner Family
DX: K59.09 Other constipation (principal); K63.89 Other specified diseases of intestine; D12.6 Benign neoplasm of colon, unspecified; Z98.890 Other specified postprocedural states; K57.90 Diverticulosis of intestine, part unspecified, without perforation or abscess without bleeding
CPT/HCPCS: 99213

== ENCOUNTER → 2023-09-20 14:48 | Outpatient (BNVA) | payer OTHER, SELFPAY | PROVIDERS: PCP Physician Assistant; Visit Provider Nurse Practitioner Family ==

== ENCOUNTER 2023-11-10 14:04 | Outpatient (AMB) | payer OTHER, SELFPAY ==
[2023-11-10 14:10] VITALS: BP 86/56; PULSE 74; O2SAT 100; BMI 27.2
--- NOTE | 2023-11-10 14:10 | MHC.OFFVIS ---
Intake Vital Signs 11/10/23 14:10 Height 5 ft 4.5 in Blood Pressure Location Lt brachial Position Sitting Pulse Source Pulse Oximeter Oxygen Delivery Method Room Air Intake Visit Reasons: Abdominal pain Senior Applications Developer Required: No Allergies No Known Allergies Allergy (Unknown, Verified 09/20/23 15:01) COUNTS INCLUDE 234 BEDS AT [facility] Medical History (Updated 10/01/23 @ 18:55 by Cecile Valero, [facility]) Tubular adenoma of colon Melanosis coli Endometriosis Surgical History Hx of colonoscopy Hx of breast implants, bilateral History of root canal procedure H/O exploratory laparotomy Family History Father Colon cancer Mother History of IBS Arthritis Other Mental health disorder Social History Housing: House Alcohol intake: current Alcohol intake frequency: holidays/special occasions only Patient Tobacco Use Status: Never used Tobacco e-Cigarette/Vaping Use: Never Used service: No Current occupational status: employed 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[employer] 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 Gender identity: Female Cognitive needs: No Hearing needs: No Vision needs: No Female Reproductive History Menstrual Age of Menarche: 15 Questionnaire Thrive Questionnaire Date Thrive assessed: 11/10/23 I am a: Patient What is your living situation today?: I have a steady place to live Within the past 12 months, did the food you bought not last and you didn't have the money to get more?: Never true Within the past 12 months, did you worry whether your food would run out before you got money to buy more?: Never true Do you have trouble paying for medicines?: No Do you have trouble getting transportation to medical appointments?: No Do you have trouble paying your heating and electricity bill?: No Do you have trouble taking care of your child, family member or friend?: No Do you have trouble with day-to-day activities such as bathing, preparing meals, shopping, managing finances, etc.?: No Are you currently unemployed and looking for a job?: No Are you interested in more education?: No Please select the resources that you would like help with: None Currently or been in a relationship where the following occur: no concerns reported THRIVE Score: 0 FABIAN-7 AMB Questionnaire FABIAN-7 Date FABIAN - 7 assessed: 10/14/22 Source: Developed by Drs. Efrain Richard, Tita Marte, Michi Braxton and colleagues, with an educational bo from [employer] Coding
--- NOTE | 2023-11-10 14:17 | A.OFFPC_ITS ---
Vital Signs 11/10/23 14:10 Height 5 ft 4.5 in Weight 161 lb BMI 27.2 BP 86/56 L Blood Pressure Location Lt brachial Position Sitting Pulse 74 Pulse Source Pulse Oximeter Pulse Oximetry (%) 100 Oxygen Delivery Method Room Air Intake Visit Reasons: Abdominal pain Intake Note: The patient is experiencing abdominal pain that has persisted for over three months. They are here today to discuss with their PCP the gastrointestinal diagnosis made in August, which was diverticulitis. Additionally, they report right hip pain occurring after any type of movement. Quality Assurance Monitor Required: No Accompanied by: Self / Same As Patient Allergies No Known Allergies Allergy (Unknown, Verified 11/10/23 14:28) Medication List - Last Reconciled 11/10/23 by Shankar Barrera PA-C escitalopram oxalate 10 mg PO DAILY trazodone 150 mg PO BEDTIME Tobacco use date assessed: 11/10/23 Dental Screening Dental Screen Date: 11/10/23 Did you have a dental visit in the last 12 months?: Yes Did you have a dental problem in the last 6 months where you did not have access to dental care?: No Was dental information given to patient?: Patient has dentist HPI Abdominal pain HPI Details Patient is a 48-year-old female here today for problem visit. Reports she has been having trouble with constipation. She usually needs to take a laxative to be able to go the bathroom. She has been taking a medication given to her by her rack production worker. She did have colonoscopy last year which did show diverticulosis and a polyp positive for tubular adenoma. She also reports having right hip pain worse when flexing hip at 90 degrees. She denies any falls or actual trauma to the right hip. She also is concerned about her dentition she went to her dentist and needs multiple areas of work. Of note patient does have a history of bulimia which may have played a role her poor dentition. [facility] Medical History (Updated 11/10/23 @ 14:50 by Shankar Barrera PA-C) Tubular adenoma of colon Melanosis coli Endometriosis Surgical History Hx of colonoscopy Hx of breast implants, bilateral History of root canal procedure H/O exploratory laparotomy Family History Father Colon cancer Mother History of IBS Arthritis Other Mental health disorder Social History Housing: House Alcohol intake: current Alcohol intake frequency: holidays/special occasions only Patient Tobacco Use Status: Never used Tobacco e-Cigarette/Vaping Use: Never Used service: No Current occupational status: employed 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 Efrain Richard, Tita Marte, Michi Braxton and colleagues, with an educational bo from [employer]. Review of Systems Const Denies headache(s) Eyes Denies loss of vision ENT Denies vertigo, Denies dizziness, Denies headache(s) and Denies sore throat Card Denies chest pain, Denies leg edema and Denies lightheadedness Resp Denies cough, Denies hemoptysis and Denies wheezing GI Denies abdominal pain, Denies melena, Reports constipation, Denies diarrhea and Denies vomiting Denies urinary frequency, Denies dysuria and Denies urinary urgency Musc Details: Right lateral hip pain Reports back pain, Reports arthralgias, Denies joint swelling, Denies muscle cramps, Denies numbness and Denies tingling Neuro Denies Abnormal speech present, Denies behavioral changes, Denies vertigo, Denies dizziness, Denies headache(s), Denies loss of vision, Denies memory loss, Denies numbness and Denies tingling Psych Denies anxiety, Denies behavioral changes, Denies depression, Denies memory loss and Denies panic attacks Jake/Lymph Denies easy bleeding and Denies easy bruising Aller/Immun Denies wheezing Physical exam (Primary Care) Vital Signs: Last Vital Signs Pulse 74 11/10/23 14:10 BP 86/56 L 11/10/23 14:10 Pulse Ox 100 11/10/23 14:10 Oxygen Delivery Method Room Air 11/10/23 14:10 BMI result Body Mass Index 27.2 Tobacco/Smoking Status: Tobacco use Status Tobacco use date assessed 11/10/23 11/10/23 14:20 Patient Tobacco Use Status Never used Tobacco 11/10/23 14:20 e-Cigarette/Vaping Use Never Used 11/10/23 14:20 Thrive Assessment: Date of Thrive Assessment Date Thrive assessed 10/14/22 11/10/23 14:20 Const General: healthy appearing, no acute distress, alert and awake Nutritional Appearance: well nourished Orientation/consciousness: oriented to person, oriented to place and oriented to time HENMT Ears: TM's normal bilaterally General nose exam: Normal nasal mucous membranes and turbinates present Eyes Conjunctivae: conjunctivae normal Sclerae: sclerae normal Pupils: Equal, round and reactive pupils present Neck Neck: Yes no lymphadenopathy and Yes no JVD Thyroid: Thyroid normal Carotids: no bruits Resp Effort & Inspection: normal respiratory effort and not tachypneic Auscultation: no crackles, no rales, no rhonchi and no wheezes Cardio Rate: regular rate Rhythm: regular rhythm Heart sounds: no murmurs and normal S1 and S2 GI Palpation (GI): Soft to palpation, nontender, no hepatomegaly and no splenomegaly Auscultation: normal bowel sounds Skin General skin exam: no rashes or lesions noted and dry skin Neuro General: oriented to person, oriented to place and oriented to time Cranial nerves: Yes Equal, round and reactive pupils present Speech: No Abnormal speech present Gait exam (Neuro): Normal gait present Motor exam (neuro): no tremor noted Extrem Right upper extremity: full ROM Left upper extremity: full ROM Right lower extremity: full ROM; no edema Left lower extremity: full ROM; no edema Psych Mental Status: mental status grossly normal Speech and movement: Normal speech and movement present Affect: normal affect Attitude: cooperative Thought process: Normal thought process present Assessment and Plan Assessment & Plan (1) Constipation: Code(s): K59.00 - Constipation, unspecified Qualifiers: Constipation type: other constipation type Qualified Code(s): K59.09 - Other constipation Plan: Patient continues to suffer with chronic constipation. Will supply patient with senna to use 1st force laxative affect. If not effective she will also try lactulose. Advised on increasing fluids and fiber in her diet. She will continue follow-up with a rack production worker (2) Amenorrhea: Code(s): N91.2 - Amenorrhea, unspecified Plan: Reports she has not had any. In a few years. She was on Depo injections though due to fears of side effects of osteoporosis she has stopped using Depo. Will check hormone levels ? Postmenopausal (3) Greater trochanteric bursitis of right hip: Code(s): M70.61 - Trochanteric bursitis, right hip Plan: Patient's signs symptoms of right lateral hip pain most consistent with a greater trochanteric bursitis. Advised on cool compress over the right hip. Advised on physical therapy though patient declines at this time will do her own home stretches. Orders: Orders Vitamin B12 and Folate 11/10/23 E53.8 - Deficiency of other specified B group vitamins, Z86.59 - Personal history of other mental and behavioral disorders Vitamin C 11/10/23 Z86.59 - Personal history of other mental and behavioral disorders Vitamin D 25-OH Total 11/10/23 Z86.59 - Personal history of other mental and behavioral disorders Vitamin E 11/10/23 Z86.59 - Personal history of other mental and behavioral disorders Follicle Stimulating Hormone 11/10/23 N91.2 - Amenorrhea, unspecified Estrogen 11/10/23 N91.2 - Amenorrhea, unspecified HCG Quantitative 11/10/23 N91.2 - Amenorrhea, unspecified Medications: New sennosides (Senna Lax) 8.6 mg PO BEDTIME 90 days 90 tabs 1RF K59.09 - Other constipation lactulose 20 grams (30 mL) PO BID 15 days PRN 900 mL 0RF laxative effect K59.09 - Other constipation Coding Level of Care Code Est Pt Level 4 (79475) Diagnoses Other constipation K59.09 Constipation type: other constipation type Amenorrhea N91.2 Greater trochanteric bursitis of right hip M70.61
== END 2023-11-10 14:57 | disposition home or self-care (01) ==
PROVIDERS: PCP Physician Assistant; Visit Provider Physician Assistant
DX: K59.09 Other constipation (principal); N91.2 Amenorrhea, unspecified; M70.61 Trochanteric bursitis, right hip
CPT/HCPCS: 99214

== ENCOUNTER 2023-11-10 15:04 | Outpatient (REF) | payer OTHER, SELFPAY ==
[2023-11-10 15:33] LABS: Hematocrit 40.9 % (37.0-47.0); Hemoglobin 13.4 g/dl (12.0-16.0); Mean Corpuscular HGB Conc 32.8 g/dl (31.0-35.0); Mean Corpuscular Hemoglobin 27.9 pg (27.0-33.0); Mean Corpuscular Volume 85.2 fL (80.0-98.0); Mean Platelet Volume 8.3 fL (9.4-12.3); Platelet Count 304 X10*3/uL (160-400); Red Cell Distribution Width 11.9 % (11.0-16.0); White Blood Count 5.2 X10*3/uL (4.8-10.8)
[2023-11-10 20:39] LABS: Alanine Aminotransferase 8 U/L (0-31); Albumin Level 4.3 g/dL (3.5-5.0); Alkaline Phosphatase 84 U/L (39-117); Anion Gap 12 (12-20); Aspartate Amino Transferase 14 U/L (5-31); Bilirubin Total 0.5 mg/dL (0.0-1.0); Blood Urea Nitrogen 10 mg/dL (9-16); Calcium 9.3 mg/dL (8.4-10.2); Carbon Dioxide 28 mmol/L (22-29); Chloride 103 mmol/L (96-108); Estimated Glomerular Filt Rate > 60; Glucose Fasting 92 mg/dL (60-99); Potassium 4.2 mmol/L (3.3-5.1); Sodium 139 mmol/L (135-145); Total Protein 7.1 g/dL (6.5-8.0)
[2023-11-10 20:55] LABS: HCG Quantitative < 2 mIU/mL; Vitamin D 25-OH Total 28.9 ng/mL (>30)
[2023-11-10 21:12] LABS: Folate 6.4 ng/mL (> or = 4.0); Vitamin B12 275 pg/mL (200-900)
[2023-11-11 09:48] LABS: Follicle Stimulating Hormone 74.1 mIU/mL
[2023-11-14 05:08] LABS: Alpha-Tocopherol 14.9 mg/L (5.7-19.9); Beta-Gamma Tocopherol 1.4 mg/L (<=4.3)
[2023-11-14 22:03] LABS: Estrogen 76 pg/mL
[2023-11-16 13:52] LABS: Vitamin C 0.1 mg/dL (0.3-2.7)
== END 2023-11-10 15:05 | disposition home or self-care (01) ==
LOC: HO.LAB 15:04
PROVIDERS: PCP Physician Assistant; Visit Provider Physician Assistant
DX: Z13.1 Encounter for screening for diabetes mellitus (principal); E53.8 Deficiency of other specified B group vitamins; N91.2 Amenorrhea, unspecified; Z86.59 Personal history of other mental and behavioral disorders
CPT/HCPCS: 36415; 80053; 82180; 82306; 82607; 82672; 82746; 83001; 84446; 84702; 85027

== ENCOUNTER 2023-12-01 14:08 | Outpatient (REF) | payer OTHER, SELFPAY ==
[2023-12-02 12:04] LABS: CT PCR NOT DETECTED (Not Detect.); NG PCR NOT DETECTED (Not Detect.)
[2023-12-02 13:56] LABS: BV Int Neg Control Negative (Negative); BV Int Pos Control Positive (Positive)
== END 2023-12-01 14:09 | disposition home or self-care (01) ==
LOC: HO.LNP 14:08
PROVIDERS: PCP Physician Assistant; Visit Provider Advanced Practice Midwife
DX: Z01.419 Encounter for gynecological examination (general) (routine) without abnormal findings (principal); N89.8 Other specified noninflammatory disorders of vagina
CPT/HCPCS: 0353U; 87480; 87510; 87660

== ENCOUNTER 2023-12-01 14:08 | Outpatient (AMB) | payer OTHER, SELFPAY ==
--- NOTE | 2023-12-01 14:10 | MHC.OFFVIS ---
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 Doing well with no concerns. She tries to eat healthy and stays active with exercise. She reports weight gain, working from home, has knee/hip pain. No menses for over 1+yrs. after stopping Depo, having some hot flashes. Currently is sexually active, admits to vaginal dryness. She admit vaginal itching and irritation. STI screening offered; she accepts. Denies family history of breast or ovarian, father passed 2 yrs. ago from colon cancer. Last pap smear 2020, negative. Prior abnormal. Mammogram: 2021. Colonscopy CAD. 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 Gender identity: Female Cognitive needs: No Hearing needs: No Vision needs: No Female Reproductive History Menstrual Age of Menarche: 15 Total pregnancies: 1 Full term: 1 Number of Living Children: 1 Date of last pap smear: 05/20/21 (neg pap and hpv) Date of Mammogram: 08/20/22 (Birad 0) Review of Systems Const All systems reviewed & are unremarkable except as noted in HPI and below Reports as per HPI Eyes Reports no additional complaints ENT Reports no additional complaints Card Reports no additional complaints Resp Reports no additional complaints GI Reports as per HPI and Reports no additional complaints Reports as per HPI Musc Reports no additional complaints Skin/Breast Reports as per HPI Neuro Reports no additional complaints Psych Reports no additional complaints Endo Reports no additional complaints Jake/Lymph Reports no additional complaints Aller/Immun Reports no additional complaints Physical Exam Vital Signs: Last Vital Signs BP 100/66 12/01/23 14:11 BMI result Body Mass Index 27.9 Const General: cooperative, healthy appearing, no acute distress, well developed and alert Orientation/consciousness: patient oriented x3 HEENT Head: Yes normal to inspection Eyes General: appearance normal, both eyes and all related structures Neck Neck: Yes normal visual inspection Thyroid: Thyroid normal Chest Chest palpation & inspection: normal inspection of the chest and other (no puckering, dimpling, peau de orange, retraction, discharge, masses) Breast/axilla inspection: normal inspection of the breasts Breast/axilla palpation: normal palpation of the breasts Resp Effort & Inspection: normal respiratory effort GI Inspection: Yes normal to inspection Palpation (GI): Soft to palpation Rectal Exam - Female: deferred General: Yes bladder normal to palpation External Female Exam: normal external appearance and normal appearance of the urethra Speculum Exam - Vagina: normal appearance of the vagina, normal palpation and normal vaginal discharge Speculum Exam - Cervix: normal appearance of the cervix and normal palpation Bimanual exam- vagina & uterus: normal bimanual exam, normal palpation, uterine size normal, bladder normal to palpation, normal palpation and non-tender Bimanual Exam- Adnexa, other: no masses Skin General skin exam: no rashes or lesions noted Rashes: no rashes Neuro General: patient oriented x3 Cognition (Neuro): normal cognition Extrem General: Yes normal to inspection Psych Attitude: cooperative Thought process: Normal thought process present Assessment & Plan Assessment & Plan (1) Encounter for well woman exam with routine gynecological exam: Code(s): Z01.419 - Encounter for gynecological examination (general) (routine) without abnormal findings Plan Discussed: Current recommendations for pap smears per ASCCP guidelines. Breast awareness and periodic breast exams. Maintain a healthy lifestyle including a well balanced diet and routine exercise. Mammogram yearly. Scheduled follow-up after her mammogram to discuss her hot flashes and other symptoms. Patient verbalizes understanding and agrees to the plan of care. She was given opportunity to ask questions and all questions were answered to the best of my ability. RTO in one year for annual computer compositor examination. This note is constructed using voice recognition software. While every effort has been made to ensure accuracy, executive search consultant errors may have been included. Orders: Orders Bacterial Vaginosis Panel Today N89.8 - Other specified noninflammatory disorders of vagina CT NG by PCR Today N89.8 - Other specified noninflammatory disorders of vagina Coding Level of Care Code Est Pt Prev Care 40-64y(06422) Diagnoses Encounter for well woman exam with routine gynecological exam Z01.419
[2023-12-01 14:11] VITALS: BP 100/66; BMI 27.9
== END 2023-12-01 14:54 | disposition home or self-care (01) ==
PROVIDERS: PCP Physician Assistant; Visit Provider Advanced Practice Midwife
DX: Z01.419 Encounter for gynecological examination (general) (routine) without abnormal findings (principal)
CPT/HCPCS: 99396

== ENCOUNTER 2023-12-05 15:40 | Outpatient (REF) | payer OTHER, SELFPAY ==
[2023-12-05 17:15] LABS: Appearance Urine Clear; Color Urine Yellow; Glucose Urine UA Negative (Negative); Leukocyte Esterase Urine Trace (Negative); Nitrite Urine Negative (Negative); PH 5.5 (5.0-9.0); UMIC TRIGGER UACC YES; Urine Blood Large (3+) (Negative); Urine Ketones Negative (Negative); Urine Protein Negative (Neg-Trace)
[2023-12-05 18:03] LABS: Bacteria Urine None Seen (None Seen); Hyaline Casts Urine 0-2 /LPF (0-2); RBC Urine >20 /HPF (0-2); WBC Urine 0-5 /HPF (0-5)
== END 2023-12-05 15:41 | disposition home or self-care (01) ==
LOC: HO.LAB 15:40
PROVIDERS: PCP Physician Assistant; Visit Provider Physician Assistant
DX: R30.0 Dysuria (principal)
CPT/HCPCS: 81001

== ENCOUNTER 2023-12-07 12:20 | Outpatient (REF) | payer OTHER, SELFPAY ==
[2023-12-07 12:42] LABS: Hematocrit 37.7 % (37.0-47.0); Hemoglobin 12.6 g/dl (12.0-16.0); Mean Corpuscular HGB Conc 33.4 g/dl (31.0-35.0); Mean Corpuscular Hemoglobin 28.8 pg (27.0-33.0); Mean Corpuscular Volume 86.1 fL (80.0-98.0); Mean Platelet Volume 8.7 fL (9.4-12.3); Platelet Count 301 X10*3/uL (160-400); Red Blood Count 4.38 X10*6/uL (4.20-5.50)
[2023-12-07 13:16] LABS: HCG Quantitative < 2 mIU/mL; Thyroid Stimulating Hormone 1.51 uIU/mL (0.32-4.0)
[2023-12-07 15:05] LABS: Appearance Urine Cloudy; Color Urine Dark Yellow; Glucose Urine UA Negative (Negative); Leukocyte Esterase Urine Negative (Negative); Nitrite Urine Negative (Negative); PH 8.5 (5.0-9.0); Specific Gravity - Urine 1.025 (1.005-1.025); Urine Blood Negative (Negative); Urine Ketones Negative (Negative); Urine Protein Negative (Neg-Trace)
== END 2023-12-07 12:21 | disposition home or self-care (01) ==
LOC: HO.LAB 12:20
PROVIDERS: PCP Physician Assistant; Visit Provider Advanced Practice Midwife
DX: R30.0 Dysuria (principal); O20.0 Threatened abortion
CPT/HCPCS: 36415; 81003; 84443; 84702; 85027

== ENCOUNTER 2023-12-09 13:41 | Outpatient (AMB) | payer OTHER, SELFPAY ==
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
[2023-12-09 13:47] VITALS: BP 122/57; PULSE 62; O2SAT 100; BMI 27.0
== END 2023-12-09 14:20 | disposition home or self-care (01) ==
PROVIDERS: PCP Physician Assistant; Referring Provider Physician Assistant; Visit Provider Nurse Practitioner Family
DX: M54.31 Sciatica, right side (principal); M54.59 Other low back pain; M47.816 Spondylosis without myelopathy or radiculopathy, lumbar region; M25.551 Pain in right hip
CPT/HCPCS: 99204

== ENCOUNTER 2023-12-09 13:41 | Outpatient (REF) | payer OTHER, SELFPAY ==
--- NOTE | ~2023-12-09 | XR_ITS ---
EXAMINATION: XR PELVIS, RIGHT HIP, LUMBAR SPINE, LEFT KNEE CLINICAL INFORMATION: Pain. COMPARISON: None available. TECHNIQUE: AP view of the pelvis as well as AP and lateral views of the right hip. 5 views of the lumbar spine. 3 views of the left knee. FINDINGS: Left Knee: Mild narrowing of the medial compartment with tiny medial marginal osteophytes. No significant joint effusion. Lumbar Spine: Dextroscoliosis of the lumbar spine. Degenerative changes in the bilateral sacroiliac joints. Facet arthritis in the [id number] lumbar spine. Mild degenerative changes in the imaged lower thoracic spine. Multilevel lumbar spondylosis with moderate loss of disc space height at L4-L5 and L5-S1. AP Pelvis and Right Hip: Right hip alignment and joint space preserved. Minimal hypertrophic change right hip. Bilateral hip joints are symmetric on AP view of the pelvis. Small sclerotic focus overlying the right humeral head, possibly representing a bone island. XR/XR knee LT 3V IMPRESSION: 1. Mild degenerative changes left knee. 2. Multilevel lumbar spondylosis with moderate loss of disc space height at L4-L5 and L5-S1. 3. Minimal degenerative changes in the right hip.
--- NOTE | ~2023-12-09 | XR_ITS ---
EXAMINATION: XR PELVIS, RIGHT HIP, LUMBAR SPINE, LEFT KNEE CLINICAL INFORMATION: Pain. COMPARISON: None available. TECHNIQUE: AP view of the pelvis as well as AP and lateral views of the right hip. 5 views of the lumbar spine. 3 views of the left knee. FINDINGS: Left Knee: Mild narrowing of the medial compartment with tiny medial marginal osteophytes. No significant joint effusion. Lumbar Spine: Dextroscoliosis of the lumbar spine. Degenerative changes in the bilateral sacroiliac joints. Facet arthritis in the [id number] lumbar spine. Mild degenerative changes in the imaged lower thoracic spine. Multilevel lumbar spondylosis with moderate loss of disc space height at L4-L5 and L5-S1. AP Pelvis and Right Hip: Right hip alignment and joint space preserved. Minimal hypertrophic change right hip. Bilateral hip joints are symmetric on AP view of the pelvis. Small sclerotic focus overlying the right humeral head, possibly representing a bone island. XR/XR lumbar spine 4V min IMPRESSION: 1. Mild degenerative changes left knee. 2. Multilevel lumbar spondylosis with moderate loss of disc space height at L4-L5 and L5-S1. 3. Minimal degenerative changes in the right hip.
--- NOTE | ~2023-12-09 | XR_ITS ---
EXAMINATION: XR PELVIS, RIGHT HIP, LUMBAR SPINE, LEFT KNEE CLINICAL INFORMATION: Pain. COMPARISON: None available. TECHNIQUE: AP view of the pelvis as well as AP and lateral views of the right hip. 5 views of the lumbar spine. 3 views of the left knee. FINDINGS: Left Knee: Mild narrowing of the medial compartment with tiny medial marginal osteophytes. No significant joint effusion. Lumbar Spine: Dextroscoliosis of the lumbar spine. Degenerative changes in the bilateral sacroiliac joints. Facet arthritis in the [id number]-sk-[id number] lumbar spine. Mild degenerative changes in the imaged lower thoracic spine. Multilevel lumbar spondylosis with moderate loss of disc space height at L4-L5 and L5-S1. AP Pelvis and Right Hip: Right hip alignment and joint space preserved. Minimal hypertrophic change right hip. Bilateral hip joints are symmetric on AP view of the pelvis. Small sclerotic focus overlying the right humeral head, possibly representing a bone island. XR/XR hip RT w PEL1V IMPRESSION: 1. Mild degenerative changes left knee. 2. Multilevel lumbar spondylosis with moderate loss of disc space height at L4-L5 and L5-S1. 3. Minimal degenerative changes in the right hip.
== END 2023-12-09 13:42 | disposition home or self-care (01) ==
LOC: HO.XRAY 13:41
PROVIDERS: PCP Physician Assistant; Referring Provider Physician Assistant; Visit Provider Nurse Practitioner Family
DX: M54.31 Sciatica, right side (principal); M54.59 Other low back pain; M47.816 Spondylosis without myelopathy or radiculopathy, lumbar region; M25.551 Pain in right hip; M25.562 Pain in left knee
CPT/HCPCS: 72110; 73502; 73562

== ENCOUNTER 2023-12-21 11:17 | Outpatient (AMB) | payer OTHER, SELFPAY ==
[2023-12-21 11:21] VITALS: BMI 27.0
--- NOTE | 2023-12-21 11:21 | MHC.OFFVIS ---
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 Patient reports her pain has been going on for about a year and is a 10 on the 1-10 pain scale. She states she is taking ibuprofen and heat for the pain with little relief she denies injury, injections and surgery. The patient states that she also has intermittent low back pain which radiates down her right leg. She is due for follow-up in the pain management clinic here at [facility] later this week. Allergies No Known Allergies Allergy (Unknown, Verified 12/21/23 11:30) Medication List - Last Reconciled 12/21/23 by Ludwin Majano MD ascorbic acid (vitamin C) 500 mg PO BID 90 days cholecalciferol (vitamin D3) 50 mcg PO DAILY 90 days escitalopram oxalate 10 mg PO DAILY fluconazole 150 mg PO ONCE 1 day ibuprofen 800 mg PO Q8H 30 days lactulose 20 grams (30 mL) PO BID PRN 15 days miconazole nitrate (Monistat 3) 1 appful vaginal BEDTIME 3 days sennosides (Senna Lax) 8.6 mg PO BEDTIME 90 days trazodone 150 mg PO BEDTIME PFSH Medical History Post traumatic stress disorder (PTSD) Tubular adenoma of colon Melanosis coli Endometriosis Surgical History Hx of colonoscopy Hx of breast implants, bilateral History of root canal procedure H/O exploratory laparotomy Family History Father Colon cancer Mother History of IBS Arthritis Other Mental health disorder Social History Housing: House Alcohol intake: current Alcohol intake frequency: holidays/special occasions only Patient Tobacco Use Status: Never used Tobacco e-Cigarette/Vaping Use: Never Used service: No Current occupational status: employed 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[employer] 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 Gender identity: Female Cognitive needs: No Hearing needs: No Vision needs: No Female Reproductive History Menstrual Age of Menarche: 15 Physical Exam Vital Signs: BMI result Body Mass Index 27.0 Const Other: Well-nourished well-developed very friendly female awake alert and oriented x3 in no acute distress Extrem Other: Bilateral lower extremity examination shows good capillary refill, no skin lesions noted, normal sensation light touch Left knee examination shows a minimal effusion, pain with range of motion, minimal crepitus with range of motion, tenderness along her medial joint line Results Reviewed Results Reviewed: MRI report of the patient's left knee (the films are not available for viewing) show no evidence of meniscus or ligament tearing, there is suggestion of a subchondral insufficiency fracture of the medial tibial plateau with osteonecrosis in the differential Assessment & Plan Assessment & Plan (1) Left knee pain: Code(s): M25.562 - Pain in left knee Plan Ms. Cabezas presents with left knee pain possibly due to osteonecrosis of her medial tibial plateau as per her MRI reading (the MRI films are not available for viewing today). Thus, I will have the patient evaluated by my partner, Dr. Aguirre, for his recommendations regarding her treatment options such as partial knee replacement surgery if indicated. The patient is instructed to get her MRI films on CD prior to that appointment. She will continue with her activity modifications in the meantime. Feel free to call me at any time should questions regarding her orthopedic management arise. Thank you very much for asking me to see this very friendly patient. I spent 19 minutes in reviewing the patient's records and imaging studies, seeing the patient and documenting in the medical record. Coding Level of Care Code New Pt Level 2 (89869) Diagnoses Left knee pain M25.562
== END 2023-12-21 11:50 | disposition home or self-care (01) ==
PROVIDERS: PCP Physician Assistant; Visit Provider Orthopaedic Surgery
DX: M25.562 Pain in left knee (principal)
CPT/HCPCS: 99202

== ENCOUNTER → 2023-12-21 11:17 | Outpatient (BNVA) | payer OTHER, SELFPAY | PROVIDERS: PCP Physician Assistant; Visit Provider Orthopaedic Surgery ==

== ENCOUNTER 2023-12-23 10:56 | Outpatient (AMB) | payer OTHER, SELFPAY ==
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
[2023-12-23 11:02] VITALS: BP 126/73; PULSE 70; O2SAT 99; BMI 27.0
== END 2023-12-23 11:43 | disposition home or self-care (01) ==
PROVIDERS: PCP Physician Assistant; Visit Provider Nurse Practitioner Family
DX: G96.191 Perineural cyst (principal); M47.816 Spondylosis without myelopathy or radiculopathy, lumbar region; M54.16 Radiculopathy, lumbar region; M51.36 Other intervertebral disc degeneration, lumbar region; M48.061 Spinal stenosis, lumbar region without neurogenic claudication
CPT/HCPCS: 99214

== ENCOUNTER → 2023-12-23 10:56 | Outpatient (BNVA) | payer OTHER, SELFPAY | PROVIDERS: PCP Physician Assistant; Visit Provider Nurse Practitioner Family ==

== ENCOUNTER 2023-12-26 12:53 | Outpatient (REF) | payer OTHER, SELFPAY | END 2023-12-26 12:54 | disposition home or self-care (01) | LOC: HO.HOSX 12:53 | PROVIDERS: Visit Provider Orthopaedic Surgery | DX: Z13.89 Encounter for screening for other disorder (principal) ==

== ENCOUNTER 2024-01-19 06:16 | Outpatient (REF) | payer OTHER, SELFPAY ==
--- NOTE | ~2024-01-19 | FL_ITS ---
EXAMINATION: Intraoperative fluoroscopy CLINICAL INFORMATION: Radiculopathy, lumbar region COMPARISON: Lumbar spine x-rays 12/09/2023 TECHNIQUE: Intraoperative fluoroscopy was provided for use by Dr. Moore. A total of 2 images were saved to PACS. A radiologist was not present during imaging. Today's dictation is only for administrative purposes to document intraoperative fluoroscopic usage. TOTAL FLUOROSCOPIC TIME: 0.1 minutes DAP: 0.01 mGy-cm FL/FL guidance in treatment room FINDINGS~\^^ Intraoperative fluoroscopy provided for use by Dr. Moore. Please see operative note for detailed findings.
== END 2024-01-19 06:17 | disposition home or self-care (01) ==
LOC: CF 06:16
PROVIDERS: Visit Provider Internal Medicine
DX: M54.16 Radiculopathy, lumbar region (principal)
CPT/HCPCS: 62323; J3301; Q9967

== ENCOUNTER 2024-01-19 13:47 | Outpatient (AMB) | payer OTHER, SELFPAY ==
--- NOTE | 2024-01-19 13:55 | MHC.OFFVIS ---
Vital Signs 01/19/24 14:40 01/19/24 14:41 Height 5 ft 4.5 in Weight 162 lb BMI 27.4 BP 118/72 122/78 Blood Pressure Location Lt brachial Lt brachial Position Sitting Sitting Respiration 18 18 Pulse 102 H 94 Pulse Source Pulse Oximeter Pulse Oximeter Pulse Oximetry (%) 97 98 Oxygen Delivery Method Room Air Room Air Comment Pre-Op Post-Op Intake Visit Reasons: L4-L5 interlaminar (more right) CANDELARIO Allergies No Known Allergies Allergy (Unknown, Verified 12/27/23 16:13) HPI HPI L4-L5 interlaminar (more right) CANDELARIO: Details: Patient presents for scheduled procedure. Denies any recent cough, cold, infection, fever or other significant changes in medical history since last office visit. [facility] Medical History Post traumatic stress disorder (PTSD) Tubular adenoma of colon Melanosis coli Endometriosis Surgical History Hx of colonoscopy Hx of breast implants, bilateral History of root canal procedure H/O exploratory laparotomy Family History Father Colon cancer Mother History of IBS Arthritis Other Mental health disorder Social History Housing: House Alcohol intake: current Alcohol intake frequency: holidays/special occasions only Patient Tobacco Use Status: Never used Tobacco e-Cigarette/Vaping Use: Never Used service: No Current occupational status: employed 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[employer] 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 Gender identity: Female Cognitive needs: No Hearing needs: No Vision needs: No Female Reproductive History Menstrual Age of Menarche: 15 Physical Exam Vital Signs: Last Vital Signs Pulse 94 01/19/24 14:41 Resp 18 01/19/24 14:41 BP 122/78 01/19/24 14:41 Pulse Ox 98 01/19/24 14:41 Oxygen Delivery Method Room Air 01/19/24 14:41 BMI result Body Mass Index 27.4 Office Procedures Joint Injection/Drain Joint Injection/Drain Details: Interlaminar epidural steroid injection, L4-5, right parasaggital After obtaining written consent, pre-procedure blood pressure and heart rate were stable and recorded in the nursing record. The patient was placed in the prone position. The lumbosacral area was widely prepped with chloraprep and draped in sterile fashion. Fluoroscopic guidance was used to identify the desired interlaminar space and for needle placement. Subcutaneous 0.5% lidocaine was used to anesthetize the skin overlying the target. A 20-gauge Jeffers needle was advanced to the epidural space using loss of resistance to contrast technique under fluoroscopic AP and contralateral oblique views. There was no evidence of heme or CSF and no paresthesias were elicited with needle placement. Confirmation of epidural needle placement was performed with 1cc of omnipaque 180. Next 3 ml 0.5% lidocaine mixed with 80 mg triamcinolone was administered epidurally with no pain elicited on injection. The needle tract tubing was then cleared with 1 ml of 0.5% lidocaine. The needle was removed, skin cleansed and a sterile bandage was applied. The patient tolerated the procedure well and no complications were encountered. Following the procedure the patient's vital signs were stable. The patient was discharged home in good condition with post-procedural instructions. Time Out: Immediately prior to the procedure, the following was verbally confirmed that there is a signed consent form and that the correct patient, planned procedure, site and side are consistent with documentation and that necessary equipment and/or blood products are available prior to the start of the case. Complications: none EBL: <5 cc Coding 68202 - Caudal/Lumbar Epidural/Interlaminar with fluoroscopy Procedure code (CPT) selection complete Assessment & Plan Assessment & Plan (1) Lumbar radiculopathy: Code(s): M54.16 - Radiculopathy, lumbar region Category: Medical Plan Patient is status post right parasagittal L4-5 interlaminar CANDELARIO. Patient tolerated procedure well and was discharged home in stable condition with discharge instructions. All questions were answered. We will follow-up via telephone or in clinic to assess response to therapy. A follow-up appointment was made during today's visit. Orders: Orders FL guidance in treatment room Today M54.16 - Radiculopathy, lumbar region Coding Level of Care Code Procedure Only Diagnoses Lumbar radiculopathy M54.16 CPT Codes Coding - Joint 11: 92992 - Caudal/Lumbar Epidural/Interlaminar with fluoroscopy ([id number])
[2024-01-19 14:40] VITALS: BP 118/72; PULSE 102; RESP 18; O2SAT 97; BMI 27.4
[2024-01-19 14:41] VITALS: BP 122/78; PULSE 94; RESP 18; O2SAT 98
== END 2024-01-19 14:35 | disposition home or self-care (01) ==
LOC: HO.PMCPRC 13:47
PROVIDERS: PCP Physician Assistant; Visit Provider Internal Medicine
DX: M54.16 Radiculopathy, lumbar region (principal)
CPT/HCPCS: 62323

== ENCOUNTER 2024-04-26 15:23 | Outpatient (AMB) | payer OTHER, SELFPAY ==
--- NOTE | 2024-04-26 15:28 | MHC.PC.OV ---
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 Required: No Accompanied by: Self / Same As Patient Allergies No Known Allergies Allergy (Unknown, Verified 04/26/24 15:36) Medication List - Last Reconciled 04/26/24 by Shankar Barrera PA-C ascorbic acid (vitamin C) 500 mg PO BID 90 days cholecalciferol (vitamin D3) 50 mcg PO DAILY 90 days escitalopram oxalate 10 mg PO DAILY ibuprofen 800 mg PO Q8H 30 days lactulose 20 grams (30 mL) PO BID PRN 15 days miconazole nitrate (Monistat 3) 1 appful vaginal BEDTIME 3 days sennosides (Senna Lax) 8.6 mg PO BEDTIME 90 days tizanidine 2 mg PO BEDTIME 10 days trazodone 150 mg PO BEDTIME Tobacco use date assessed: 11/10/23 Dental Screening Dental Screen Date: 11/10/23 HPI 4 month f/u HPI Details Patient is a 48-year-old female here today for follow-up visit.. Patient has a past medical history significant for insomnia, generalized anxiety disorder, depression and OCD. .. Left knee pain: MRI left knee recently found osteonecrosis. She reports she perhaps needs a replacement though is fairly young for this. She has follow-up with orthopedic surgeon to discuss possibly a surgical fix. Has been staying away from all physical activity for now .. Lumbar spine disc disease: Most recent MRI showing multilevel lumbar disc disease. She has gotten injection her lower back and will be following with pain management soon.. Generalized anxiety/OCD/major depressive disorder: She is now speaking with a mental health therapist at [facility]. She reports her mental health disorders have become worse over the last several months. She reports a lot of family stressors. She continues on SSRI therapy and trazodone at night for sleep. Her job has allowed her to work lower amounts of hours per week which has helped her with her anxiety and depression. 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 Efrain Richard, Tita Marte, Michi Braxton and colleagues, with an educational bo from [employer]. Review of Systems Const Denies headache(s) Eyes Denies loss of vision ENT Denies vertigo, Denies dizziness, Denies headache(s) and Denies sore throat Card Denies chest pain, Denies leg edema and Denies lightheadedness Resp Denies cough, Denies hemoptysis and Denies wheezing GI Denies abdominal pain, Denies melena, Denies constipation, Denies diarrhea and Denies vomiting Denies urinary frequency, Denies dysuria and Denies urinary urgency Musc Denies arthralgias, Denies joint swelling, Denies numbness and Denies tingling Neuro Denies Abnormal speech present, Denies behavioral changes, Denies vertigo, Denies dizziness, Denies headache(s), Denies loss of vision, Denies memory loss, Denies numbness and Denies tingling Psych Denies anxiety, Denies behavioral changes, Denies depression, Denies memory loss and Denies panic attacks Jake/Lymph Denies easy bleeding and Denies easy bruising Aller/Immun Denies wheezing Physical exam (Primary Care) Vital Signs: Last Vital Signs Pulse 86 04/26/24 15:33 BP 110/78 04/26/24 15:33 Pulse Ox 98 04/26/24 15:33 Oxygen Delivery Method Room Air 04/26/24 15:33 BMI result Body Mass Index 26.7 Tobacco/Smoking Status: Tobacco use Status Tobacco use date assessed 11/10/23 04/26/24 15:28 Patient Tobacco Use Status Never used Tobacco 04/26/24 15:28 e-Cigarette/Vaping Use Never Used 04/26/24 15:28 Thrive Assessment: Date of Thrive Assessment Date Thrive assessed 10/14/22 04/26/24 15:28 Const General: healthy appearing, no acute distress, alert and awake Nutritional Appearance: well nourished Orientation/consciousness: oriented to person, oriented to place and oriented to time HENMT Ears: TM's normal bilaterally General nose exam: Normal nasal mucous membranes and turbinates present Eyes Conjunctivae: conjunctivae normal Sclerae: sclerae normal Pupils: Equal, round and reactive pupils present Neck Neck: Yes no lymphadenopathy and Yes no JVD Thyroid: Thyroid normal Carotids: no bruits Resp Effort & Inspection: normal respiratory effort and not tachypneic Auscultation: no crackles, no rales, no rhonchi and no wheezes Cardio Rate: regular rate Rhythm: regular rhythm Heart sounds: no murmurs and normal S1 and S2 GI Palpation (GI): Soft to palpation, nontender, no hepatomegaly and no splenomegaly Auscultation: normal bowel sounds Skin General skin exam: no rashes or lesions noted and dry skin Neuro General: oriented to person, oriented to place and oriented to time Cranial nerves: Yes Equal, round and reactive pupils present Speech: No Abnormal speech present Gait exam (Neuro): Normal gait present Motor exam (neuro): no tremor noted Extrem Right upper extremity: full ROM Left upper extremity: full ROM Right lower extremity: full ROM; no edema Left lower extremity: full ROM; no edema Psych Mental Status: mental status grossly normal Speech and movement: Normal speech and movement present Affect: normal affect Attitude: cooperative Thought process: Normal thought process present Assessment and Plan Assessment & Plan (1) Spinal stenosis, lumbar region without neurogenic claudication: Code(s): M48.061 - Spinal stenosis, lumbar region without neurogenic claudication Plan: Now followed by [facility]. Still having lower lumbar spine pain and occasion radiculopathy done right lower extremity. She has been using ibuprofen 800 mg which has been helpful in reducing her pain. Will add in additional Tylenol as she has been having some gastritis secondary to NSAID. She did get an injection in her lower back which seems to have been helpful. (2) MDD (major depressive disorder), recurrent episode, moderate: Code(s): F33.1 - Major depressive disorder, recurrent, moderate Plan: Patient's depression has been fairly well controlled with current mental health medications. Still suffers with depressive moods mostly related to her previous personal traumas. (3) Left medial tibial stress syndrome: Code(s): S86.892A - Other injury of other muscle(s) and tendon(s) at lower leg level, left leg, initial encounter Qualifiers: Encounter type: subsequent encounter Qualified Code(s): S86.892D - Other injury of other muscle(s) and tendon(s) at lower leg level, left leg, subsequent encounter Plan: Now followed by [facility]. Most recent MRI of the left knee showing osteonecrosis of the tibial plateau. May need replacement in near future, has an upcoming appointment to talk to an orthopedic surgeon.. (4) GERD (gastroesophageal reflux disease): Code(s): K21.9 - Gastro-esophageal reflux disease without esophagitis Qualifiers: Esophagitis presence: without esophagitis Qualified Code(s): K21.9 - Gastro-esophageal reflux disease without esophagitis Plan: Has noted some GERD like symptoms over the last few weeks, likely secondary to NSAID use. Advised to reduce her NSAID use and mixed in Tylenol for her knee pain. Will supply patient with omeprazole to use p.r.n.. Medications: New acetaminophen ER (Tylenol Arthritis Pain) 650 mg PO Q12H 60 tabs 0RF 30 days M19.90 - Unspecified osteoarthritis, unspecified site omeprazole 20 mg PO DAILY 30 caps 1RF 30 days K21.9 - Gastro-esophageal reflux disease without esophagitis hydroquinone 4% 1 appl topical DAILY 28.35 grams 0RF 30 days L81.1 - Chloasma Refilled ibuprofen 800 mg PO Q8H 90 tabs 1RF 30 days M25.562 - Pain in left knee Coding Level of Care Code Est Pt Level 4 (77003) Diagnoses Spinal stenosis, lumbar region without neurogenic claudication M48.061 MDD (major depressive disorder), recurrent episode, moderate F33.1 Left medial tibial stress syndrome, subsequent encounter S86.112J Encounter type: subsequent encounter Gastroesophageal reflux disease without esophagitis K21.9 Esophagitis presence: without esophagitis
[2024-04-26 15:33] VITALS: BP 110/78; PULSE 86; O2SAT 98; BMI 26.7
== END 2024-04-26 15:57 | disposition home or self-care (01) ==
PROVIDERS: PCP Physician Assistant; Visit Provider Physician Assistant
DX: M48.061 Spinal stenosis, lumbar region without neurogenic claudication (principal); F33.1 Major depressive disorder, recurrent, moderate; S86.892D Other injury of other muscle(s) and tendon(s) at lower leg level, left leg, subsequent encounter; K21.9 Gastro-esophageal reflux disease without esophagitis
CPT/HCPCS: 99214

== ENCOUNTER 2024-05-10 11:57 | Outpatient (REF) | payer OTHER, SELFPAY | END 2024-05-10 11:58 | disposition home or self-care (01) | LOC: HO.HOSX 11:57 | PROVIDERS: Visit Provider Orthopaedic Surgery | DX: Z13.89 Encounter for screening for other disorder (principal) ==

== ENCOUNTER 2024-07-11 04:53 | Emergency (ER) | payer OTHER, SELFPAY ==
[2024-07-11 05:06] VITALS: BP 129/83; PULSE 73; RESP 14; TEMP 36.4; O2SAT 97; BMI 27.5
--- NOTE | 2024-07-11 06:15 | MHC.EDTECH ---
at this time this tech attempted to take the pt's vital signs, pt refused and stated they just did my vitals out there referring to the triage nurse. Pt seemed slightly agitated r/t her waiting for an extended preiod of time and not seeing the MD at this time. She stated I just want to see the doctor and go home In which I stated the doctor should be in shortly. Vital signs were refused, rounds completed, call light within reach for safety.
--- NOTE | 2024-07-11 06:32 | PC.NURSE ---
pt upset she had not been seen by provider, notified Clinical coordinator.
--- NOTE | 2024-07-11 06:47 | ED_ITS ---
HPI - Skin/Abscess/Foreign Bdy General Chief complaint: Skin/Abscess/Foreign Body Stated complaint: insect bite Time Seen by Provider: 07/11/24 06:30 Source: patient Mode of arrival: ambulatory Limitations: no limitations History of Present Illness ED Provider: justina LANDA narrative: Patient with swelling of the left nostril for last few days noticed increased redness and pain on the outside part of the nose for last 2 days not sure whether she had a insect bite or not Related Data Home Medications ?Medication ?Instructions ?Recorded ?Confirmed escitalopram oxalate 10 mg tablet 10 mg PO DAILY 09/20/23 04/26/24 trazodone 150 mg tablet 150 mg PO BEDTIME 09/20/23 04/26/24 Previous Rx's ?Medication ?Instructions ?Recorded lactulose 20 gram/30 mL oral 20 g (30 mL) PO BID PRN laxative 11/10/23 solution effect 15 days #900 mL sennosides 8.6 mg tablet (Senna 8.6 mg PO BEDTIME 90 days #90 tabs 11/10/23 Lax) cholecalciferol (vitamin D3) 50 50 mcg PO DAILY 90 days #90 caps 11/15/23 mcg (2,000 unit) capsule ascorbic acid (vitamin C) 500 mg 500 mg PO BID 90 days #180 caps 11/16/23 capsule miconazole nitrate 200 mg/5 gram 1 appful vaginal BEDTIME 3 days 12/06/23 (4 %) vaginal cream (Monistat 3) #15 grams acetaminophen 650 mg 650 mg PO Q12H 30 days #60 tabs 04/26/24 tablet,extended release (Tylenol Arthritis Pain) hydroquinone 4 % topical cream 1 appl topical DAILY 30 days 04/26/24 #28.35 grams ibuprofen 800 mg tablet 800 mg PO Q8H 30 days #90 tabs 04/26/24 omeprazole 20 mg capsule,delayed 20 mg PO DAILY 30 days #30 caps 04/26/24 release lidocaine 5 % topical patch 1 patch topical DAILY 30 days #30 05/17/24 ea prednisone 10 mg tablet 10 mg PO DIRECTED 6 days #12 05/17/24 tabs tizanidine 2 mg tablet 2 mg PO BEDTIME muscle spasticity 05/17/24 10 days #10 tabs amoxicillin 875 mg-potassium 1 tab PO BID 5 days #10 tabs 07/10/24 clavulanate 125 mg tablet mupirocin 2 % topical ointment 1 appl topical BID 15 days #22 07/10/24 grams doxycycline hyclate 100 mg tablet 100 mg PO BID #20 tabs 07/11/24 ibuprofen 600 mg tablet 600 mg PO Q6H PRN fever or pain 07/11/24 #30 tabs mupirocin 2 % topical ointment 1 appl topical BID #15 grams 07/11/24 Allergies Allergy/AdvReac Type Severity Reaction Status Date / Time No Known Allergies Allergy Unknown Verified 07/11/24 05:09 [facility] Past Medical History Medical History Post traumatic stress disorder (PTSD) Tubular adenoma of colon Melanosis coli Endometriosis Surgical History Hx of colonoscopy Hx of breast implants, bilateral History of root canal procedure H/O exploratory laparotomy Family History Family History Father Colon cancer Mother History of IBS Arthritis Other Mental health disorder Social History Social History Housing: House Alcohol intake: current Alcohol intake frequency: holidays/special occasions only Patient Tobacco Use Status: Never used Tobacco e-Cigarette/Vaping Use: Never Used Advance Directives: No Advance Directives Information Provided: Yes Do you have a plan to hurt others: No Plan service: No Current occupational status: employed 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 Small folliculitis with surrounding erythema Medical Decision Making Medical Decision Making MDM Narrative: Patient with small folliculitis of the left nostril clinically MRSA infection prescribed doxycycline already taken and Augmentin needle aspiration done and pus expressed Procedures Abscess I/D Site: face (Nose left nostril) Side (if applicable): left Local Anesthetic: lidocaine 1% Amount of anesthesia used (mL): 1 Technique: needle aspiration Amount of fluid expressed (mL): 0.5 Sent for culture/gram staining?: No Packing used?: none Complications: pain Discharge Plan Discharge Clinical Impression: Folliculitis, MRSA (methicillin resistant Staphylococcus aureus) Patient Disposition: Home, Self-Care Instructions: MRSA (Methicillin-Resistant Staphylococcus Aureus) (ED), Folliculitis (ED) Additional Instructions: Take ibuprofen for pain Likely have MRSA infection Use warm packs as advised Continue Augmentin will add doxycycline 1 capsule twice a day for 10 days Apply mupirocin ointment twice a day inside the nose Prescriptions: New ibuprofen 600 mg tablet 600 mg PO Q6H PRN (Reason: fever or pain) Qty: 30 0RF doxycycline hyclate 100 mg tablet 100 mg PO BID Qty: 20 0RF mupirocin 2 % ointment 1 appl topical BID Qty: 15 0RF No Action cholecalciferol (vitamin D3) 50 mcg (2,000 unit) capsule 50 mcg PO DAILY 90 Days Qty: 90 1RF ascorbic acid (vitamin C) 500 mg capsule 500 mg PO BID 90 Days Qty: 180 1RF Monistat 3 200 mg/5 gram (4 %) cream 1 appful vaginal BEDTIME 3 Days Qty: 15 0RF lidocaine 5 % adhesive patch,medicated 1 patch topical DAILY 30 Days Qty: 30 1RF Rx Instructions: leave on most painful area for up to 12 hrs prednisone 10 mg tablet 10 mg PO DIRECTED 6 Days Qty: 12 0RF Rx Instructions: Take 3 tablets x2 days, 2 tablets x2 days, 1 tablet x2 days tizanidine 2 mg tablet 2 mg PO BEDTIME 10 Days Qty: 10 0RF amoxicillin-pot clavulanate 875-125 mg tablet 1 tab PO BID 5 Days Qty: 10 0RF mupirocin 2 % ointment 1 appl topical BID 15 Days Qty: 22 0RF sennosides [Senna Lax] 8.6 mg tablet 8.6 mg PO BEDTIME 90 Days Qty: 90 1RF lactulose 20 gram/30 mL solution 20 g PO BID PRN (Reason: laxative effect) 15 Days Qty: 900 0RF ibuprofen 800 mg tablet 800 mg PO Q8H 30 Days Qty: 90 1RF acetaminophen [Tylenol Arthritis Pain] 650 mg tablet extended release 650 mg PO Q12H 30 Days Qty: 60 0RF omeprazole 20 mg capsule,delayed release(DR/EC) 20 mg PO DAILY 30 Days Qty: 30 1RF hydroquinone 4 % cream 1 appl topical DAILY 30 Days Qty: 28.35 0RF trazodone 150 mg tablet 150 mg PO BEDTIME escitalopram oxalate 10 mg tablet 10 mg PO DAILY Print Language: [place]
[2024-07-11] MEDS: Doxycycline Monohydrate 100 MG CAPSULE PO (06:52)
[2024-07-11] MEDS: Lidocaine HCl 1 % MPF 2 ML VIAL INFILTRATI (06:52)
[2024-07-11] MEDS: Ibuprofen 600 MG TABLET PO (06:52)
--- NOTE | 2024-07-11 06:57 | PC.NURSE ---
Provider into assess pt and to provide care, medicated per mar.
[2024-07-11 07:23] VITALS: BP 129/83; PULSE 73; RESP 14; TEMP 36.4; O2SAT 97
== END 2024-07-11 07:23 | disposition home or self-care (01) ==
PROVIDERS: Emergency Provider Internal Medicine; PCP Physician Assistant
DX: L73.8 Other specified follicular disorders (principal); A49.02 Methicillin resistant Staphylococcus aureus infection, unspecified site
CPT/HCPCS: 10160; 99284; J2003

== ENCOUNTER 2024-09-13 11:36 | Outpatient (AMB) | payer OTHER, SELFPAY ==
[2024-09-13 11:51] VITALS: BP 104/72; PULSE 98; O2SAT 98; BMI 27.7
--- NOTE | 2024-09-13 11:51 | MHC.PC.OV ---
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 Patient has a past medical history significant for insomnia, generalized anxiety disorder, depression and OCD. .. Left knee pain: MRI left knee recently found osteonecrosis. She reports she perhaps needs a replacement though is fairly young for this. She has follow-up with orthopedic surgeon to discuss possibly a surgical fix. Has been staying away from all physical activity for now. She does use NSAID as needed her pain which offers her some relief. OCD: Was on Lexapro 10 mg previously which offered her some good relief of her depression and OCD symptoms. Also was on trazodone 50 mg at night that did offer good relief of her sleeping issues. She has unfortunately lost follow-up with her mental health therapist and Psychiatry due to insurance issues. [facility] Medical History (Updated 09/17/24 @ 07:25 by Shankar Barrera PA-C) Poor dentition H/O bulimia nervosa Family history of colon cancer in father Constipation Post traumatic stress disorder (PTSD) Tubular adenoma of colon Endometriosis Surgical History Hx of colonoscopy Hx of breast implants, bilateral History of root canal procedure H/O exploratory laparotomy Family History Father Colon cancer Mother History of IBS Arthritis Other Mental health disorder Social History Housing: House Alcohol intake: current Alcohol intake frequency: holidays/special occasions only Patient Tobacco Use Status: Never used Tobacco e-Cigarette/Vaping Use: Never Used service: No Current occupational status: employed 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 Efrain Richard, Tita Marte, Michi Braxton and colleagues, with an educational bo from [employer]. Review of Systems Const Denies headache(s) Eyes Denies loss of vision ENT Denies vertigo, Denies dizziness, Denies headache(s) and Denies sore throat Card Denies chest pain, Denies leg edema and Denies lightheadedness Resp Denies cough, Denies hemoptysis and Denies wheezing GI Denies abdominal pain, Denies melena, Denies constipation, Denies diarrhea and Denies vomiting Denies urinary frequency, Denies dysuria and Denies urinary urgency Musc Denies arthralgias, Denies joint swelling, Denies numbness and Denies tingling Neuro Denies Abnormal speech present, Denies behavioral changes, Denies vertigo, Denies dizziness, Denies headache(s), Denies loss of vision, Denies memory loss, Denies numbness and Denies tingling Psych Denies anxiety, Denies behavioral changes, Denies depression, Denies memory loss and Denies panic attacks Jake/Lymph Denies easy bleeding and Denies easy bruising Aller/Immun Denies wheezing Physical exam (Primary Care) Vital Signs: Last Vital Signs Pulse 98 09/13/24 11:51 BP 104/72 09/13/24 11:51 Pulse Ox 98 09/13/24 11:51 Oxygen Delivery Method Room Air 09/13/24 11:51 BMI result Body Mass Index 27.7 Tobacco/Smoking Status: Tobacco use Status Tobacco use date assessed 11/10/23 09/13/24 11:52 Patient Tobacco Use Status Never used Tobacco 09/13/24 11:52 e-Cigarette/Vaping Use Never Used 09/13/24 11:52 Thrive Assessment: Date of Thrive Assessment Date Thrive assessed 10/14/22 09/13/24 11:52 Const General: healthy appearing, no acute distress, alert and awake Nutritional Appearance: well nourished Orientation/consciousness: oriented to person, oriented to place and oriented to time HENMT Ears: TM's normal bilaterally General nose exam: Normal nasal mucous membranes and turbinates present Eyes Conjunctivae: conjunctivae normal Sclerae: sclerae normal Pupils: Equal, round and reactive pupils present Neck Neck: Yes no lymphadenopathy and Yes no JVD Thyroid: Thyroid normal Carotids: no bruits Resp Effort & Inspection: normal respiratory effort and not tachypneic Auscultation: no crackles, no rales, no rhonchi and no wheezes Cardio Rate: regular rate Rhythm: regular rhythm Heart sounds: no murmurs and normal S1 and S2 GI Palpation (GI): Soft to palpation, nontender, no hepatomegaly and no splenomegaly Auscultation: normal bowel sounds Skin General skin exam: no rashes or lesions noted and dry skin Neuro General: oriented to person, oriented to place and oriented to time Cranial nerves: Yes Equal, round and reactive pupils present Speech: No Abnormal speech present Gait exam (Neuro): Normal gait present Motor exam (neuro): no tremor noted Extrem Right upper extremity: full ROM Left upper extremity: full ROM Right lower extremity: full ROM; no edema Left lower extremity: full ROM; no edema Psych Mental Status: mental status grossly normal Speech and movement: Normal speech and movement present Affect: normal affect Attitude: cooperative Thought process: Normal thought process present Coding Level of Care Code Est Pt Level 4 (44545) Diagnoses MDD (major depressive disorder), recurrent episode, moderate F33.1 Degeneration of intervertebral disc of lumbar region, unspecified whether pain present M51.369 Disc-related pain type: unspecified whether pain present Vitamin C deficiency E54 Left medial tibial stress syndrome, subsequent encounter S86.890E Encounter type: subsequent encounter Assessment & Plan Assessment & Plan (1) MDD (major depressive disorder), recurrent episode, moderate: Code(s): F33.1 - Major depressive disorder, recurrent, moderate Category: Medical Plan: Patient has a long-term history major depressive disorder. Was seeing mental health therapy in his psychiatrist though had to discontinue seeing them due to insurance issues . She was on Lexapro and trazodone which were helpful to her mental health and sleep. She now needs PCP to help manage these mental health medications. (2) Lumbar degenerative disc disease: Code(s): M51.36 - Other intervertebral disc degeneration, lumbar region Category: Medical Qualifiers: Disc-related pain type: unspecified whether pain present Qualified Code(s): M51.369 - Other intervertebral disc degeneration, lumbar region without mention of lumbar back pain or lower extremity pain Plan: Has not been able to be physically active due to her lower lumbar disc disease and left knee tibial plateau fracture. She is interested in looking into aquatic therapy for nonweightbearing exercises. Today written a letter for her to get some kind of scholarship for local [facility] to do aquatic therapy (3) Vitamin C deficiency: Code(s): E54 - Ascorbic acid deficiency Category: Medical Plan: Has a history of vitamin C deficiency , will recheck vitamin-C. (4) Left medial tibial stress syndrome: Code(s): S86.892A - Other injury of other muscle(s) and tendon(s) at lower leg level, left leg, initial encounter Category: Medical Qualifiers: Encounter type: subsequent encounter Qualified Code(s): S86.892D - Other injury of other muscle(s) and tendon(s) at lower leg level, left leg, subsequent encounter Plan: As above patient was followed by Orthopedics whom suspect she needs surgery on her left knee tibial region. She is not able to take much time off of work due to financial constraints. For now she is staying somewhat physically inactive so that her pain in her knee is not as evident. She is still using ibuprofen 600 on a p.r.n. basis Orders: Orders Comprehensive [place]. Panel Fast 09/13/24 Z13.1 - Encounter for screening for diabetes mellitus Complete Blood Count no Diff 09/13/24 Z13.1 - Encounter for screening for diabetes mellitus Vitamin C 09/13/24 E54 - Ascorbic acid deficiency Medications: New trazodone 50 mg PO BEDTIME 90 tabs 1RF 90 days F33.1 - Major depressive disorder, recurrent, moderate escitalopram oxalate (Lexapro) 10 mg PO DAILY 90 tabs 1RF 90 days F33.1 - Major depressive disorder, recurrent, moderate Refilled sennosides (Senna Lax) 8.6 mg PO BEDTIME 90 tabs 3RF 90 days K59.09 - Other constipation ibuprofen 600 mg PO Q6H PRN 30 tabs 3RF fever or pain lactulose 20 grams (30 mL) PO BID PRN 900 mL 0RF laxative effect 15 days K59.09 - Other constipation Discontinued ibuprofen Discontinued Reason: Doctor's Order 800 mg PO Q8H 30 days 90 tabs 1RF M25.562 - Pain in left knee
== END 2024-09-13 12:29 | disposition home or self-care (01) ==
PROVIDERS: PCP Physician Assistant; Visit Provider Physician Assistant
DX: F33.1 Major depressive disorder, recurrent, moderate (principal); M51.369 Other intervertebral disc degeneration, lumbar region without mention of lumbar back pain or lower extremity pain; E54 Ascorbic acid deficiency; S86.892D Other injury of other muscle(s) and tendon(s) at lower leg level, left leg, subsequent encounter

== ENCOUNTER → 2024-09-13 11:36 | Outpatient (BNVA) | payer OTHER, SELFPAY | PROVIDERS: PCP Physician Assistant; Visit Provider Physician Assistant | DX: F33.1 Major depressive disorder, recurrent, moderate (principal); M51.369 Other intervertebral disc degeneration, lumbar region without mention of lumbar back pain or lower extremity pain; E54 Ascorbic acid deficiency; S86.892D Other injury of other muscle(s) and tendon(s) at lower leg level, left leg, subsequent encounter | CPT/HCPCS: 99212 ==

== ENCOUNTER 2025-01-04 14:31 | Outpatient (AMB) | payer OTHER, SELFPAY ==
[2025-01-04 14:47] VITALS: BP 140/80; PULSE 77; O2SAT 100; BMI 25.6
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
== END 2025-01-04 15:13 | disposition home or self-care (01) ==
LOC: HO.PMC 14:31
PROVIDERS: PCP Physician Assistant; Referring Provider Physician Assistant; Visit Provider Nurse Practitioner Family
DX: M51.369 Other intervertebral disc degeneration, lumbar region without mention of lumbar back pain or lower extremity pain (principal); M25.552 Pain in left hip; M53.3 Sacrococcygeal disorders, not elsewhere classified; M47.817 Spondylosis without myelopathy or radiculopathy, lumbosacral region
CPT/HCPCS: 99214

== ENCOUNTER 2025-01-04 14:31 | Outpatient (REF) | payer OTHER, SELFPAY ==
--- NOTE | ~2025-01-04 | XR_ITS ---
CLINICAL HISTORY: M25.552 - Pain in left hip Pelvis and left hip two views Comparison: None Findings: No acute fracture or dislocation identified. Mild degenerative change in the hips. No radiopaque foreign body noted. Impression: No acute bony abnormality This document has been electronically signed by: Peter Balderrama MD on 01/08/2025 20:24:07
--- NOTE | ~2025-01-04 | XR_ITS ---
CLINICAL HISTORY: M53.3 - Sacrococcygeal disorders, not elsewhere classified Bilateral sacroiliac joints five views Comparison: None Findings: No acute fracture or dislocation identified. Bilateral SI joints are patent without sclerosis. No radiopaque foreign body noted. Impression: No acute bony abnormality This document has been electronically signed by: Peter Balderrama MD on 01/08/2025 20:24:16
== END 2025-01-04 14:32 | disposition home or self-care (01) ==
LOC: HO.XRAY 14:31
PROVIDERS: PCP Physician Assistant; Referring Provider Physician Assistant; Visit Provider Nurse Practitioner Family
DX: M51.360 Other intervertebral disc degeneration, lumbar region with discogenic back pain only (principal); M53.3 Sacrococcygeal disorders, not elsewhere classified; M25.552 Pain in left hip
CPT/HCPCS: 72202; 73502

== ENCOUNTER → 2025-01-04 15:57 | Outpatient (BNV) | payer OTHER, SELFPAY | PROVIDERS: PCP Physician Assistant; Referring Provider Physician Assistant; Visit Provider Radiology Diagnostic Radiology | DX: M25.552 Pain in left hip (principal); M53.3 Sacrococcygeal disorders, not elsewhere classified | CPT/HCPCS: 72202; 73502 ==

== ENCOUNTER 2025-01-07 06:47 | Outpatient (REF) | payer OTHER, SELFPAY ==
[2025-01-07 07:41] LABS: Hematocrit 38.2 % (37.0-47.0); Hemoglobin 12.5 g/dl (12.0-16.0); Mean Corpuscular HGB Conc 32.7 g/dl (31.0-35.0); Mean Corpuscular Hemoglobin 28.5 pg (27.0-33.0); Mean Platelet Volume 8.7 fL (9.4-12.3); Platelet Count 339 X10*3/uL (160-400); Red Blood Count 4.39 X10*6/uL (4.20-5.50); Red Cell Distribution Width 12.2 % (11.0-16.0); White Blood Count 6.7 X10*3/uL (4.8-10.8)
[2025-01-07 08:15] LABS: Alanine Aminotransferase 13 U/L (0-31); Albumin Level 4.2 g/dL (3.5-5.0); Alkaline Phosphatase 61 U/L (39-117); Anion Gap 11 (12-20); Aspartate Amino Transferase 23 U/L (5-31); Bilirubin Total 0.6 mg/dL (0.0-1.0); Blood Urea Nitrogen 12 mg/dL (9-16); Calcium 9.1 mg/dL (8.4-10.2); Carbon Dioxide 29 mmol/L (22-29); Chloride 107 mmol/L (96-108); Estimated Glomerular Filt Rate > 60; Glucose Fasting 79 mg/dL (60-99); Potassium 3.8 mmol/L (3.3-5.1); Sodium 143 mmol/L (135-145); Total Protein 6.6 g/dL (6.5-8.0)
== END 2025-01-07 06:48 | disposition home or self-care (01) ==
LOC: HO.LAB 06:47
PROVIDERS: PCP Physician Assistant; Visit Provider Physician Assistant
DX: Z13.1 Encounter for screening for diabetes mellitus (principal)
CPT/HCPCS: 36415; 80053; 82180; 85027

== ENCOUNTER 2025-01-08 15:06 | Outpatient (AMB) | payer OTHER, SELFPAY ==
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
[2025-01-08 15:20] VITALS: BP 90/60; PULSE 80; TEMP 36.4; O2SAT 98; BMI 25.1
== END 2025-01-08 16:08 | disposition home or self-care (01) ==
LOC: HO.HMCH 15:07
PROVIDERS: PCP Physician Assistant; Visit Provider Physician Assistant
DX: Z00.00 Encounter for general adult medical examination without abnormal findings (principal); F33.1 Major depressive disorder, recurrent, moderate; M51.369 Other intervertebral disc degeneration, lumbar region without mention of lumbar back pain or lower extremity pain; S86.892D Other injury of other muscle(s) and tendon(s) at lower leg level, left leg, subsequent encounter; F51.01 Primary insomnia

== ENCOUNTER → 2025-01-08 15:06 | Outpatient (BNVA) | payer OTHER, SELFPAY | PROVIDERS: PCP Physician Assistant; Visit Provider Physician Assistant | DX: Z00.00 Encounter for general adult medical examination without abnormal findings (principal); F33.1 Major depressive disorder, recurrent, moderate; M51.369 Other intervertebral disc degeneration, lumbar region without mention of lumbar back pain or lower extremity pain; S86.892D Other injury of other muscle(s) and tendon(s) at lower leg level, left leg, subsequent encounter; F51.01 Primary insomnia | CPT/HCPCS: 96127 ==

== ENCOUNTER 2025-01-22 15:05 | Outpatient (AMB) | payer OTHER, SELFPAY ==
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
[2025-01-22 15:16] VITALS: BP 149/127; PULSE 101; O2SAT 99; BMI 25.1
[2025-01-22 15:17] VITALS: BP 118/58
== END 2025-01-22 15:23 | disposition home or self-care (01) ==
LOC: HO.PMC 15:07
PROVIDERS: PCP Physician Assistant; Visit Provider Nurse Practitioner Family
DX: M25.552 Pain in left hip (principal); M25.852 Other specified joint disorders, left hip; M51.369 Other intervertebral disc degeneration, lumbar region without mention of lumbar back pain or lower extremity pain; M47.27 Other spondylosis with radiculopathy, lumbosacral region; M53.3 Sacrococcygeal disorders, not elsewhere classified
CPT/HCPCS: 99214

== ENCOUNTER → 2025-01-22 15:05 | Outpatient (BNVA) | payer OTHER, SELFPAY | PROVIDERS: PCP Physician Assistant; Visit Provider Nurse Practitioner Family ==

== ENCOUNTER 2025-07-01 19:46 | Emergency (ER) | payer OTHER, SELFPAY ==
[2025-07-01 19:49] VITALS: BP 137/69; PULSE 83; RESP 16; TEMP 36.4; O2SAT 95; BMI 23.4
--- NOTE | 2025-07-01 19:49 | ED.GENADULT ---
HPI - General Adult General Chief complaint: Extremity Injury, Lower Stated complaint: rt toe infection Time Seen by Provider: 07/01/25 21:43 Source: patient Mode of arrival: ambulatory Limitations: no limitations History of Present Illness ED Provider: Blayne MCCOY HPI narrative: The patient is a 50-year-old female presenting to the ED reporting on Tuesday she cleaned and cut her toenails, reports starting yesterday she began experiencing throbbing pain and purulent drainage from the cuticle of the right great toe, the patient denies history of diabetes. Patient reports pain increased throughout the day today as she was on her feet working throughout the day. 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 Patient denies associated fever/chills, nausea, vomiting, or other systemic complaint. Related Data Home Medications ?Medication ?Instructions ?Recorded ?Confirmed fluticasone propionate 50 intranasal 01/08/25 01/08/25 mcg/actuation nasal spray,suspension loratadine 10 mg tablet 10 mg PO DAILY 01/08/25 01/08/25 phentermine 15 mg capsule 15 mg PO DAILY 01/08/25 01/08/25 Previous Rx's ?Medication ?Instructions ?Recorded cholecalciferol (vitamin D3) 50 50 mcg PO DAILY 90 days #90 caps 11/15/23 mcg (2,000 unit) capsule ascorbic acid (vitamin C) 500 mg 500 mg PO BID 90 days #180 caps 11/16/23 capsule miconazole nitrate 200 mg/5 gram 1 appful vaginal BEDTIME 3 days 12/06/23 (4 %) vaginal cream (Monistat 3) #15 grams acetaminophen 650 mg 650 mg PO Q12H 30 days #60 tabs 04/26/24 tablet,extended release (Tylenol Arthritis Pain) hydroquinone 4 % topical cream 1 appl topical DAILY 30 days 04/26/24 #28.35 grams omeprazole 20 mg capsule,delayed 20 mg PO DAILY 30 days #30 caps 04/26/24 release lidocaine 5 % topical patch 1 patch topical DAILY 30 days #30 05/17/24 ea escitalopram oxalate 10 mg tablet 10 mg PO DAILY 90 days #90 tabs 09/13/24 (Lexapro) lactulose 20 gram/30 mL oral 20 g (30 mL) PO BID PRN laxative 09/13/24 solution effect 15 days #900 mL sennosides 8.6 mg tablet (Senna 8.6 mg PO BEDTIME 90 days #90 tabs 09/13/24 Lax) tizanidine 2 mg tablet 2 mg PO BID PRN muscle spasticity 12/27/24 10 days #20 tabs trazodone 50 mg tablet 50 mg PO BEDTIME 90 days #90 tabs 02/28/25 doxycycline hyclate 100 mg tablet 100 mg PO BID 10 days #20 tabs 04/18/25 ibuprofen 600 mg tablet 600 mg PO Q6H fever or pain 10 04/18/25 days #40 tabs mupirocin 2 % topical ointment 1 appl topical BID #15 grams 04/18/25 cephalexin 500 mg capsule 500 mg PO QID #28 caps 07/01/25 Allergies Allergy/AdvReac Type Severity Reaction Status Date / Time No Known Allergies Allergy Unknown Verified 07/01/25 19:53 Review of Systems Review of Systems: Yes all other systems are reviewed and are negative [facility] Past Medical History Medical History Poor dentition H/O bulimia nervosa Family history of colon cancer in father Constipation Post traumatic stress disorder (PTSD) Tubular adenoma of colon Endometriosis Surgical History Hx of colonoscopy Hx of breast implants, bilateral History of root canal procedure H/O exploratory laparotomy Family History Family History Father Colon cancer Mother History of IBS Arthritis Other Mental health disorder Social History Social History Housing: House Alcohol intake: current Alcohol intake frequency: holidays/special occasions only Patient Tobacco Use Status: Never used Tobacco e-Cigarette/Vaping Use: Never Used Advance Directives: No Advance Directives Information Provided: No Do you have a plan to hurt others: No Plan service: No Current occupational status: employed 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 Vital signs as documented. HEAD: Atraumatic, normocephalic. EYES: EOMs grossly intact, pupils equal, conjunctiva clear, no exudate. ENT: Nares patent, no discharge. Airway patent, no audible stridor, visible mucosa is pink and moist without noted lesions. NECK: trachea is midline, no obvious masses or gross abnormalities. CHEST: Symmetric movement, normal appearance. LUNGS: Non-labored work of breathing. CARDIAC: No evidence of hypoperfusion. ABDOMEN: Nondistended, no obvious injury. : Deferred. EXTREMITIES: Right great toe demonstrates erythema and purulent drainage around the medial and proximal cuticle, no lifting give nail, distal CSM intact, no drainable fluid collection identified. Moves all extremities spontaneously without reported pain. No obvious injury or deformity noted. NEURO: Alert and oriented x3, CN II-XII appear grossly intact. Cerebellar Functioning grossly intact. Speech clear and appropriate. SKIN: Warm, dry, color appropriate. No rashes or lesions noted. Course Course Course Narrative: Rapid medical examination performed in triage by Gali Lees PA-C. Patient is a 50 year old assigned female at presenting to the emergency department with right great toe pain. Patient states she was messing with her right great toe / nail and now she is having significant pain. Detailed physical exam and review of systems are deferred to the dispatcher radio. Patient placed back in the waiting room pending room availability. Medical Decision Making Medical Decision Making MDM Narrative: 9:59 PM 07/01/2025 (Marcelina MCCOY): The patient is a 50-year-old female presenting to the ED reporting on Tuesday she cleaned and cut her toenails, reports starting yesterday she began experiencing throbbing pain and purulent drainage from the cuticle of the right great toe, the patient denies history of diabetes. Patient reports pain increased throughout the day today as she was on her feet working throughout the day. 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 Patient denies associated fever/chills, nausea, vomiting, or other systemic complaint. On exam the patient has purulent material noted around the medial and proximal aspect of the right great toe cuticle, with surrounding erythema but no evidence of drainable fluid collection. Patient will be treated with antibiotics, topical antibiotic ointment, and given instructions for additional foot care. Admission/Observation Consideration of admission/observation: Escalation of care including admission/observation considered Discharge Plan Discharge Clinical Impression: Paronychia of great toe Patient Disposition: Home, Self-Care Instructions: Paronychia (ED), Cellulitis (ED) Additional Instructions: Thank you for choosing [facility]'s Emergency Department for your care today. At this time there is no indication for admission to the hospital or continued ED observation, and it is safe to discharge you home. Your presentation is consistent with a paronychia, and infection of the cuticle of your nail, this may or may not be related to your recent cutting of your toenails. Your infection is already draining pus and thus there was no indication for drainage of the area at this time. Due to the extent of infection, we are treating you with an antibiotic called cephalexin. Please take cephalexin as prescribed until it is finished. Please place your foot in warm foot baths 2-3 times daily, otherwise please keep the foot clean and dry. Please apply bacitracin over the area and apply clean dry dressings after foot baths. You may take alternating (staggered) doses of ibuprofen 600mg and Tylenol 1000mg every 4 hours as needed for any additional pain. Please follow up with your primary care physician for re-evaluation, additional management of your symptoms, and continued preventative care. If you do not have a primary care physician, please call the [facility] at [phone] to establish a new primary care physician. While waiting to establish your new primary care physician, you can call our Walk-in Care [facility] at [phone] for non-emergency needs. Please return to the emergency department if you develop a severe or sudden change in your symptoms, a fever over 100.4 that does not improve with Tylenol or Ibuprofen, recurrent vomiting, or any other new or worsening symptoms or concerns. Prescriptions: New cephalexin 500 mg capsule 500 mg PO QID Qty: 28 0RF No Action cholecalciferol (vitamin D3) 50 mcg (2,000 unit) capsule 50 mcg PO DAILY 90 Days Qty: 90 1RF ascorbic acid (vitamin C) 500 mg capsule 500 mg PO BID 90 Days Qty: 180 1RF Monistat 3 200 mg/5 gram (4 %) cream 1 appful vaginal BEDTIME 3 Days Qty: 15 0RF lidocaine 5 % adhesive patch,medicated 1 patch topical DAILY 30 Days Qty: 30 1RF Rx Instructions: leave on most painful area for up to 12 hrs tizanidine 2 mg tablet 2 mg PO BID PRN (Reason: muscle spasticity) 10 Days Qty: 20 0RF trazodone 50 mg tablet 50 mg PO BEDTIME 90 Days Qty: 90 2RF mupirocin 2 % ointment 1 appl topical BID Qty: 15 0RF doxycycline hyclate 100 mg tablet 100 mg PO BID 10 Days Qty: 20 0RF ibuprofen 600 mg tablet 600 mg PO Q6H 10 Days Qty: 40 1RF acetaminophen [Tylenol Arthritis Pain] 650 mg tablet extended release 650 mg PO Q12H 30 Days Qty: 60 0RF omeprazole 20 mg capsule,delayed release(DR/EC) 20 mg PO DAILY 30 Days Qty: 30 1RF hydroquinone 4 % cream 1 appl topical DAILY 30 Days Qty: 28.35 0RF phentermine 15 mg capsule 15 mg PO DAILY loratadine 10 mg tablet 10 mg PO DAILY fluticasone propionate 50 mcg/actuation spray,suspension intranasal escitalopram oxalate [Lexapro] 10 mg tablet 10 mg PO DAILY 90 Days Qty: 90 1RF sennosides [Senna Lax] 8.6 mg tablet 8.6 mg PO BEDTIME 90 Days Qty: 90 3RF lactulose 20 gram/30 mL solution 20 g PO BID PRN (Reason: laxative effect) 15 Days Qty: 900 0RF Referrals: Shankar Barrera PA-C [Primary Care Provider, Internal Medicine] Clinical Impression: Paronychia of great toe Print Language: Peruvian
[2025-07-01 22:28] VITALS: BP 122/68; PULSE 76; RESP 16; TEMP 36.9; O2SAT 98
== END 2025-07-01 22:31 | disposition home or self-care (01) ==
PROVIDERS: Emergency Provider Emergency Medicine; PCP Physician Assistant
DX: L03.031 Cellulitis of right toe (principal)
CPT/HCPCS: 99283